=== PATIENT | female | born 1935 | race Caucasian/White ===

== ENCOUNTER 2018-01-30 15:35 | Observation (INO) | payer OTHER ==
[2018-01-30 16:30] LABS: Absolute Lymphocytes (CBC) 2.1 K/uL (0.7-4.9); Absolute Monocytes 0.9 K/uL (0.1-1.3); Absolute Neutrophil 4.9 K/uL (1.8-8.0); Basophils % 0.5 % (0-1.3); Eosinophils % 4.7 % (0-4.4); Hematocrit 37.5 % (36.0-45.0); Lymphocytes % 25.3 % (15.3-44.8); MCH 26.6 pg (27.0-35.0); MCV 80.3 fL (80-100); MPV 8.6 fL (7.6-11.3); RBC Red Blood Cell Count 4.67 M/uL (3.86-4.86)
[2018-01-30 16:34] LABS: Protime INR 1.13
[2018-01-30 16:53] LABS: Albumin 3.7 g/dL (3.4-5.0); Bilirubin Direct 0.1 mg/dL (0-0.2); Bilirubin Total 0.3 mg/dL (0.2-1.0); Potassium 3.9 mmol/L (3.5-5.1); Protein, Total 7.8 g/dL (6.4-8.2)
--- NOTE | 2018-01-30 17:15 | RAD REPORT ---
EXAM DESCRIPTION: RAD - Chest Single View - 01/30/2018 5:03 pm CLINICAL HISTORY: Shortness of breath, altered mental status COMPARISON: September 14 chest film, CT chest May 2017 TECHNIQUE: AP portable chest image was obtained 1627 hours . FINDINGS: Lung volumes are low. Chronic interstitial lung disease is present. Minimal interstitial e shamar or infiltrate could be masked. Lung markings overall improved from August. No peripheral mass or consolidation. Heart and vasculature are normal. No measurable pleural effusion and no pneumothora x. No acute bone finding. Dense calcification of the posterior left myocardium noted. This matches th e CT study. No acute aortic findings suspected. IMPRESSION: No acute cardiopulmonary process. Chronic disease could mask early interstitial edema or infiltrate.
[2018-01-30 17:37] LABS: Urine Blood NEGATIVE (NEG); Urine Glucose NEGATIVE (NEG); Urine Protein NEGATIVE (NEG); Urine Specific Gravity 1.015 (1.005-1.030); Urine pH 6.5 (5.0-7.0)
[2018-01-30 17:39] LABS: Urine Bacteria <20 /HPF (<20); Urine Culture Reflex Order NOT NEEDED
[2018-01-30] MEDS ORDERED: NA CHLORIDE 0.9% 1,000 ML ONE (18:01)
--- NOTE | 2018-01-30 18:03 | ER ---
Nurse's Notes [facility] Name: Kayla Marie Age: 82 yrs Sex: Female : 1935 Arrival Date: 01/30/2018 Time: 15:39 Bed 7 Private MD: Diagnosis: Dehydration;Altered mental status, unspecified;Chest pain, unspecified Presentation: 01/30 15:39 Presenting complaint: EMS states: Pt last seen normal at 0800 this morning per [facility] intermediate. Pt is arousable with verbal stimuli, c/o pain all over and generalized fatigue. Transition of care: patient was not received from another setting of care. Onset of symptoms was January 30, 2018. Risk Assessment: Do you want to hurt yourself or someone else? Patient reports no desire to harm self or others. Initial Sepsis Screen: Does the patient meet any 2 criteria? No. Patient's initial sepsis screen is negative. Does the patient have a suspected source of infection? No. Patient's initial sepsis screen is negative. Care prior to arrival: Glucose check: 237. 15:39 Method Of Arrival: EMS: [facility] 15:39 Acuity: REGINA 3 Historical: - Allergies: 15:47 eggplant; 15:47 Lorazepam; 15:47 Sulfa (Sulfonamide Antibiotics); - Home Meds: 19:03 spironolactone 25 mg Oral tab 1 tab 2 times per day [Active]; aspirin 81 mg Oral TbEC 1 aj1 tab once daily [Active]; Bentyl 20 mg Oral tab 1 tab 3 times per day [Active]; apixaban 5 mg Oral 1 tab Q EVENING [Active]; furosemide 40 mg oral tab [Active]; insulin detemir subcutaneous 18 units subcutaneous twice a day [Active]; Keppra 500 mg Oral tab 1 tab 2 times per day [Active]; magnesium oxide 400 mg Oral tab daily [Active]; metformin 500 mg oral tab 2 times per day [Active]; polyethylene glycol 8000(bulk) miscellaneous powd daily [Active]; - PMHx: 15:47 Anxiety; Aortic Stenosis; Atrial Fib; CAD; CHF; COPD; Dementia; Diabetes - IDDM; Hypertension; legally blind; Lupus; macular degeneration; Nerve stimulator; Osteoporosis; Seizures; right hip fx; - PSHx: 15:47 Unable to obtain; ss - Immunization history:: Adult Immunizations unknown. - Social history:: Smoking status: unknown. - Ebola Screening: : Patient denies travel to an Ebola-affected area in the 21 days before illness onset. Screenin:07 Abuse screen: Denies threats or abuse. Denies injuries from another. Nutritional aj1 screening: No deficits noted. Tuberculosis screening: No symptoms or risk factors identified. Assessment: 16:07 General: Appears in no apparent distress. uncomfortable, Behavior is cooperative, aj1 drowsy. Pain: Complains of pain in entire body Pain does not radiate. Pain currently is 10 out of 10 on a pain scale. Quality of pain is described as heavy, Is continuous, Alleviated by nothing. Aggravated by nothing. Neuro: Level of Consciousness is opens eyes only when told to do so and then will close her eyes again, even while talking to you. Pt responds in 3 to 5 word answers only. Oriented to person, place, time, situation, Rn Private Duty are weak bilaterally Weakness in bilateral arm(s) leg(s) states patient is wheelchair bound and is never able to move her legs very much. Speech slow, soft. Cardiovascular: Patient's skin is warm and dry. Respiratory: Airway is patent Respiratory effort is even, unlabored, Respiratory pattern is regular, symmetrical. GI: Abdomen is non-distended. : No signs and/or symptoms were reported regarding the genitourinary system. EENT: No signs and/or symptoms were reported regarding the EENT system. Derm: Skin is pink, warm \T\ dry. normal. Musculoskeletal: Circulation, motion, and sensation intact. 17:28 Reassessment: Patient appears in no apparent distress at this time. No changes from aj1 previously documented assessment. Patient and/or family updated on plan of care and expected duration. Pain level reassessed. Patient is alert, oriented x 3, equal unlabored respirations, skin warm/dry/pink. 18:30 Reassessment: Patient appears in no apparent distress at this time. Patient and/or aj1 family updated on plan of care and expected duration. Pain level reassessed. Patient is alert, oriented x 3, equal unlabored respirations, skin warm/dry/pink. Patient appears much more alert. Keeps eyes open, talking in more complete sentences. 19:30 Reassessment: Awaiting admission to floor. Reassessment: Patient appears in no apparent aa1 distress at this time. Patient and/or family updated on plan of care and expected duration. Pain level reassessed. Patient denies pain at this time. Neuro: Level of Consciousness is awake, alert, obeys commands, Oriented to person, place, situation, Speech is normal. Respiratory: Airway is patent Respiratory effort is even, unlabored. Derm: Skin is intact, is healthy with good turgor, Skin is pink, warm \T\ dry. 20:32 Reassessment: Patient appears in no apparent distress at this time. Patient and/or aa1 family updated on plan of care and expected duration. Pain level reassessed. Patient is alert, oriented x 3, equal unlabored respirations, skin warm/dry/pink. Attempted to call report on pt but nurse is unavailable and will call back shortly. Vital Signs: 15:47 BP 133 / 66; Pulse 64; Resp 17; Temp 99.1(O); Pulse Ox 98% on R/A; ss 17:28 BP 129 / 79; Pulse 63; Resp 18; Pulse Ox 99% on R/A; aj1 18:52 BP 133 / 65; Pulse 69; Resp 18; Pulse Ox 99% ; aj1 20:15 BP 106 / 62; Pulse 70; Resp 16; Temp 98.9(O); Pulse Ox 97% on R/A; Pain 0/10; aa1 Óscar Coma Score: 17:57 Eye Response: to voice(3). Verbal Response: oriented(5). Motor Response: obeys jr8 commands(6). Total: 14. ED Course: 15:39 Patient arrived in ED. ss 15:41 Godwin Gracia PA is PHCP. jr8 15:41 Chao Jansen MD is Attending Physician. jr8 15:44 Triage completed. ss 15:47 Arm band placed on right wrist. ss 15:48 Patient has correct armband on for positive identification. Placed in gown. Bed in low ss position. Call light in reach. Side rails up X2. otolaryngology surgeon on. Pulse ox on. NIBP on. 15:57 Madelyn Ruth RN is Primary Nurse. aj1 16:07 No provider procedures requiring assistance completed. aj1 16:16 Initial lab(s) drawn, by me, sent to lab. First set of blood cultures drawn by me. 3 Missed attempt(s): 22 gauge in left forearm. Bleeding controlled, band aid applied, catheter tip intact. 16:41 Inserted saline lock: 20 gauge in right antecubital area, using aseptic technique. Blood collected. 17:03 Chest Single View XRAY In Process Unspecified. EDMS 17:28 Urine collected: straight cath specimen, clear, Amount Returned: 1000mL. 3 18:01 Cristhian Mondragon MD is Hospitalizing Provider. [facility] 18:56 Repeat lab(s) drawn. by me, sent to lab. 3 20:48 Patient admitted, IV remains in place. lp1 Administered Medications: 18:05 Drug: NS 0.9% 1000 ml Route: IV; Rate: 1000 ml; Site: right antecubital; 1 20:00 Follow up: IV Status: Completed infusion aa1 Point of Care Testing: Blood Glucose: 16:18 Blood Glucose: 191 mg/dL; 3 Ranges: Outcome: 18:02 Decision to Hospitalize by Provider. [facility] 20:49 Admitted to Tele room 415, with chart, Report called to Kaye Matthew RN lp1 20:49 Condition: stable 20:49 Instructed on the need for admit. 21:32 Patient left the ED. aa1 Signatures: Dispatcher [employer] EDMadelyn Simon RN RN aj1 Narcisa Hutchinson RN RN aa1 Rosario Roque RN RN ss Evelyn Stewart RN RN lp1 Godwin Gracia PA PA 8 Ellen Ahmadi 3 Corrections: (The following items were deleted from the chart) 15:48 15:39 Care prior to arrival: None. ss ss
--- NOTE | 2018-01-30 18:03 | EDPHYS ---
Physician Documentation [facility] Name: Kayla Marie Age: 82 yrs Sex: Female : 1935 Arrival Date: 01/30/2018 Time: 15:39 Bed 7 Private MD: ED Physician Chao Jansen HPI: 01/30 17:48 This 82 yrs old Female presents to ER via EMS with complaints of Altered jr8 Mental Status. 17:48 Onset: The symptoms/episode began/occurred acutely, today. Possible causes: unknown. jr8 Associated signs and symptoms: The patient has no apparent associated signs or symptoms. Current symptoms: In the emergency department the patient's symptoms have improved, mildly. Patient's baseline: Neuro: alert and fully oriented, Motor: no deficits, Ambulation: unable to walk, Speech: normal. The patient has not experienced similar symptoms in the past. The patient has not recently seen a physician. stated that this morning she was fine but now very sleepy and not wanting to respond as well . Historical: - Allergies: 15:47 eggplant; ss 15:47 Lorazepam; ss 15:47 Sulfa (Sulfonamide Antibiotics); ss - Home Meds: 19:03 spironolactone 25 mg Oral tab 1 tab 2 times per day [Active]; aspirin 81 mg Oral TbEC 1 aj1 tab once daily [Active]; Bentyl 20 mg Oral tab 1 tab 3 times per day [Active]; apixaban 5 mg Oral 1 tab Q EVENING [Active]; furosemide 40 mg oral tab [Active]; insulin detemir subcutaneous 18 units subcutaneous twice a day [Active]; Keppra 500 mg Oral tab 1 tab 2 times per day [Active]; magnesium oxide 400 mg Oral tab daily [Active]; metformin 500 mg oral tab 2 times per day [Active]; polyethylene glycol 8000(bulk) miscellaneous powd daily [Active]; - PMHx: 15:47 Anxiety; Aortic Stenosis; Atrial Fib; CAD; CHF; COPD; Dementia; Diabetes - IDDM; ss Hypertension; legally blind; Lupus; macular degeneration; Nerve stimulator; Osteoporosis; Seizures; right hip fx; - PSHx: 15:47 Unable to obtain; ss - Immunization history:: Adult Immunizations unknown. - Social history:: Smoking status: unknown. - Ebola Screening: : Patient denies travel to an Ebola-affected area in the 21 days before illness onset. ROS: 17:57 Eyes: Negative for injury, pain, redness, and discharge, ENT: Negative for injury, jr8 pain, and discharge, Neck: Negative for injury, pain, and swelling, Cardiovascular: Negative for chest pain, palpitations, and edema, Respiratory: Negative for shortness of breath, cough, wheezing, and pleuritic chest pain, Abdomen/GI: Negative for abdominal pain, nausea, vomiting, diarrhea, and constipation, Back: Negative for injury and pain, MS/Extremity: Negative for injury and deformity, Skin: Negative for injury, rash, and discoloration, Neuro: Negative for headache, weakness, numbness, tingling, and seizure. 17:57 Constitutional: Positive for fatigue, malaise. Exam: 17:57 Eyes: Pupils equal round and reactive to light, extra-ocular motions intact. Lids and jr8 lashes normal. Conjunctiva and sclera are non-icteric and not injected. Cornea within normal limits. Periorbital areas with no swelling, redness, or edema. ENT: Nares patent. No nasal discharge, no septal abnormalities noted. Tympanic membranes are normal and external auditory canals are clear. Oropharynx with no redness, swelling, or masses, exudates, or evidence of obstruction, uvula midline. Mucous membranes moist. Neck: Trachea midline, no thyromegaly or masses palpated, and no cervical lymphadenopathy. Supple, full range of motion without nuchal rigidity, or vertebral point tenderness. No Meningismus. Cardiovascular: Regular rate and rhythm with a normal S1 and S2. No gallops, murmurs, or rubs. Normal PMI, no JVD. No pulse deficits. Respiratory: Lungs have equal breath sounds bilaterally, clear to auscultation and percussion. No rales, rhonchi or wheezes noted. No increased work of breathing, no retractions or nasal flaring. Abdomen/GI: Soft, non-tender, with normal bowel sounds. No distension or tympany. No guarding or rebound. No evidence of tenderness throughout. Back: No spinal tenderness. No costovertebral tenderness. Full range of motion. Skin: Warm, dry with normal turgor. Normal color with no rashes, no lesions, and no evidence of cellulitis. MS/ Extremity: Pulses equal, no cyanosis. Neurovascular intact. Full, normal range of motion. Neuro: Awake and alert, oriented to person, place, time, and situation. Cranial nerves II-XII grossly intact. Motor strength 5/5 in all extremities. Sensory grossly intact. Cerebellar exam normal. Normal gait. Vital Signs: 15:47 BP 133 / 66; Pulse 64; Resp 17; Temp 99.1(O); Pulse Ox 98% on R/A; ss 17:28 BP 129 / 79; Pulse 63; Resp 18; Pulse Ox 99% on R/A; aj1 18:52 BP 133 / 65; Pulse 69; Resp 18; Pulse Ox 99% ; aj1 20:15 BP 106 / 62; Pulse 70; Resp 16; Temp 98.9(O); Pulse Ox 97% on R/A; Pain 0/10; aa1 Óscar Coma Score: 17:57 Eye Response: to voice(3). Verbal Response: oriented(5). Motor Response: obeys jr8 commands(6). Total: 14. MDM: 15:41 Patient medically screened. jr8 17:59 Data reviewed: vital signs, nurses notes, lab test result(s), EKG, radiologic studies, jr8 plain films. Data interpreted: Pulse oximetry: on room air is 99 %. Interpretation: normal. Counseling: I had a detailed discussion with the patient and/or guardian regarding: the historical points, exam findings, and any diagnostic results supporting the discharge/admit diagnosis, lab results, the need for further work-up and treatment in the hospital. Physician consultation: Cristhian Mondragon MD was called at 18:01, was contacted at 18:01, regarding admission, to the medical/surgical unit. consult, patient's condition, and will see patient. 01/30 15:45 Order name: Urine Microscopic Only; Complete Time: 17:40 rust 01/30 15:45 Order name: Basic Metabolic Panel; Complete Time: 17:08 rust 01/30 15:45 Order name: Blood Culture Adult (2) rust 01/30 15:45 Order name: CBC with Diff; Complete Time: 16:41 rust 01/30 15:45 Order name: Lactate; Complete Time: 17:34 rust 01/30 15:45 Order name: LFT's; Complete Time: 17:08 01/30 15:45 Order name: Lipase; Complete Time: 17:08 01/30 15:45 Order name: Procalcitonin; Complete Time: 17:34 01/30 15:45 Order name: Protime (+inr); Complete Time: 16:41 01/30 15:45 Order name: Troponin (emerg Dept Use Only); Complete Time: 17:08 01/30 15:45 Order name: Chest Single View XRAY; Complete Time: 17:34 01/30 17:34 Order name: Urine Dipstick--Ancillary (enter results); Complete Time: 17:38 ss 01/30 18:38 Order name: Lactate aj1 01/30 19:17 Order name: Lactate; Complete Time: 19:56 EDMS 01/30 15:45 Order name: Cath; Complete Time: 17:27 01/30 15:45 Order name: Accucheck; Complete Time: 16:50 01/30 15:45 Order name: Cardiac monitoring; Complete Time: 16:12 01/30 15:45 Order name: EKG - Nurse/Tech; Complete Time: 17:27 01/30 15:45 Order name: IV Saline Lock - Large Bore; Complete Time: 16:41 01/30 15:45 Order name: Labs collected and sent; Complete Time: 16:41 01/30 15:45 Order name: O2 Per Protocol; Complete Time: 16:12 01/30 15:45 Order name: O2 Sat Monitoring; Complete Time: 16:12 01/30 15:45 Order name: Urine Dipstick-Ancillary (obtain specimen); Complete Time: 17:28 Administered Medications: 18:05 Drug: NS 0.9% 1000 ml Route: IV; Rate: 1000 ml; Site: right antecubital; aj1 20:00 Follow up: IV Status: Completed infusion aa1 Point of Care Testing: Blood Glucose: 16:18 Blood Glucose: 191 mg/dL; dh3 Ranges: Critical Glucose Levels:Adult <50 mg/dl or >400 mg/dl <40 mg/dl or >180 mg/dl Disposition: 01/31 06:50 Co-signature as Attending Physician, Chao Jansen MD I agree with the assessment and yisel plan of care. Disposition: 01/30/18 18:02 Hospitalization ordered by Cristhian Mondragon for Observation. Preliminary diagnosis are Dehydration, Altered mental status, unspecified, Chest pain, unspecified. - Bed requested for Telemetry/MedSurg (observation). - Status is Observation. aa1 - Condition is Stable. - Problem is new. - Symptoms have improved. UTI on Admission? No Signatures: Dispatcher [employer] EDMS Madelyn Ruth RN RN aj1 Aleshia Brothers RN RN kl Kern, Alissa, RN RN aa1 Chao Jansen MD MD cha Smirch, Shelby, RN RN ss Roszak, Josh, PA PA jr8 Corrections: (The following items were deleted from the chart) 01/30 18:04 18:02 Hospitalization Ordered by Cristhian Mondragon MD for Observation. Preliminary jr8 diagnosis is Dehydration; Altered mental status, unspecified. Bed requested for Telemetry/MedSurg (observation). Status is Observation. Condition is Stable. Problem is new. Symptoms have improved. UTI on Admission? No. jr8 19:28 18:04 01/30/2018 18:02 Hospitalization Ordered by Cristhian Mondragon MD for Observation. kl Preliminary diagnosis is Dehydration; Altered mental status, unspecified; Chest pain, unspecified. Bed requested for Telemetry/MedSurg (observation). Status is Observation. Condition is Stable. Problem is new. Symptoms have improved. UTI on Admission? No. jr8 21:32 19:28 01/30/2018 18:02 Hospitalization Ordered by Cristhian Mondragon MD for Observation. aa1 Preliminary diagnosis is Dehydration; Altered mental status, unspecified; Chest pain, unspecified. Bed requested for Telemetry/MedSurg (observation). Status is Observation. Condition is Stable. Problem is new. Symptoms have improved. UTI on Admission? No. kl
--- NOTE | 2018-01-30 21:10 | P.HP ---
Certification for Inpatient Patient admitted to: Observation With expected LOS: <2 Midnights Practitioner: I am a practitioner with admitting privileges, knowledge of patient current condition, hospital course, and medical plan of care. Services: Services provided to patient in accordance with Admission requirements found in Title 42 Section 412.3 of the Code of Federal Regulations Patient History Date of Service: 01/30/18 Reason for admission: acute encephalopathy History of Present Illness: Ms Marie is an 82 years old woman with multiple medical problems including CAD with 3 vessel disease, critical aortic stenosis, who refused surgery in the past, IDDM, COPD, who was seen well for last time this [facility]. Subsequently, the patient become lethargic and obtunded. No history of fever, chills, cough, SOB, N/V. She was arousable with verbal stimuli. In ED lab work remarkable for normal WBC count, lactate elevated, BUN elevated, creatinine normal. Procalcitonin normal. UA clean, but the patient had about 1 L of urine removed from her bladder with a straight catheter when UA was obtained. At the time of my examination, the patient was alert and oriented. Allergies Sulfa (Sulfonamide Antibiotics) Allergy (Unknown, Verified 06/07/17 05:24) UNKNOWN lorazepam Adverse Reaction (Verified 06/07/17 15:22) UNknown egg plant Allergy (Severe, Uncoded 06/07/17 05:24) Anaphylaxis vinegar Adverse Reaction (Unknown, Uncoded 06/07/17 05:24) Rash Home Medications: Apixaban [Eliquis] 1 tab PO BEDTIME 04/23/17 Aspirin [Aspir-Low] 1 tab PO DAILY 04/23/17 Hydrocodone Bit/Acetaminophen [[place] 10-325 Tablet] 1 tab PO Q6HP PRN 04/23/17 Levetiracetam [Keppra] 500 mg PO BID 04/23/17 Metformin HCl 1 tab PO BID 04/23/17 Sotalol HCl [Sotalol] 1 tab PO BID 04/23/17 Spironolactone [Aldactone*] 1 tab PO BID 04/23/17 Acetaminophen [Tylenol Arthritis] 650 mg PO Q4H 06/07/17 Benzonatate 200 mg PO Q8HP 06/07/17 Insulin Detemir [Levemir] 18 unit SQ BID 06/07/17 Levalbuterol HCl [Xopenex] 1 puff IH Q8HP PRN 06/07/17 Magnesium [Magnesium Gluconate] 400 mg PO DAILY 06/07/17 Mag Hydroxide 8% [Milk Of Magnesia*] 30 ml PO Q24H PRN 09/14/17 Ondansetron HCl [Zofran] 1 tab PO Q6H PRN 09/14/17 Tiotropium [place] [Spiriva] 1 puff IH DAILY 09/14/17 Furosemide [Lasix] 40 mg PO BID #60 tablet 09/16/17 - Past Medical/Surgical History Diabetic: Yes -: Lupus -: Afib -: Arthritis -: Macular degeneration -: IDDM -: CHF -: Nerve stimulator -: COPD -: Dementia -: HTN -: Seizures -: Anxiety -: Appy -: Ovarian cysts -: hernia repair -: hysterectomy -: nose sx -: cholesysectomy -: lysis of adhesions to bowel -: R hip fracture - Family History Mother -: Heart disease, Diabetes Notes: CHF Father -: Heart disease Notes: CHF Brother -: Heart disease, Cancer Notes: CHF. Prostated cancer - Social History Alcohol use: No CD- Drugs: No Caffeine use: Yes Place of Residence: [facility] Review of Systems 10-point ROS is otherwise unremarkable Physical Examination - Physical Exam General: Alert, In no apparent distress HEENT: Atraumatic, PERRLA, Mucous membr. moist/pink, EOMI, Sclerae nonicteric Neck: Supple, 2+ carotid pulse no bruit, No LAD, Without JVD or thyroid abnormality Respiratory: Clear to auscultation bilaterally, Normal air movement Cardiovascular: Normal S1 S2, No gallops, Systolic murmur (3/6 aortic area) Gastrointestinal: Normal bowel sounds, No tenderness Musculoskeletal: No tenderness, Swelling Integumentary: No rashes Neurological: Normal speech, Normal strength at 5/5 x4 extr, Normal tone, Normal affect Lymphatics: No axilla or inguinal lymphadenopathy - Studies Laboratory Data (last 24 hrs) 01/30/18 16:16: PT 13.3 H, INR 1.13 01/30/18 16:16: WBC 8.3, Hgb 12.4, Hct 37.5, Plt Count 250 01/30/18 16:16: Sodium 135 L, Potassium 3.9, BUN 24 H, Creatinine 0.80, Glucose 202 H, Total Bilirubin 0.3, AST 26, ALT 22, Alkaline Phosphatase 147 H, Lipase 44 L Assessment and Plan - Problems (Diagnosis) (1) Acute encephalopathy Current Visit: Yes Status: Acute (2) CAD (coronary artery disease) Current Visit: Yes Status: Acute Qualifiers: Coronary Disease-Associated Artery/Lesion type: tribe artery [place] vs. transplanted heart: tribe heart Associated angina: with stable angina Qualified Code(s): I25.118 - Atherosclerotic heart disease of tribe coronary artery with other forms of angina pectoris (3) Aortic stenosis Current Visit: No Status: Chronic Qualifiers: Cardiac valve disease etiology: etiology unspecified Qualified Code(s): I35.0 - Nonrheumatic aortic (valve) stenosis (4) Atrial fibrillation Onset Date: 06/08/17 Current Visit: No Status: Chronic Qualifiers: Atrial fibrillation type: chronic - Plan The patient will be admitted to the hospital due to acute encephalopathy, likely secondary to volume depletions. She already improved after NS infusion. Will continue carol IV fluids due to her chronic comorbidities. [facility] if remain stable. - Advance Directives Does patient have a Living Will: No Does patient have a Durable POA for Healthcare: Yes - Code Status/Comfort Care Code Status Assessed: Yes Code Status: Do Not Resuscitate
[2018-01-30] MEDS ORDERED: ONDANSETRON 4 MG/2 ML VIAL IV PRN (21:29)
[2018-01-30] MEDS ORDERED: ACETAMINOPHEN 500 MG TAB PO PRN (21:29)
[2018-01-30] MEDS: INSULIN -REGULAR HUMAN 50 UNIT/0.5 ML ML SQ SCH (21:29)
[2018-01-30 21:41] VITALS: BMI 28.5
[2018-01-30 21:46] VITALS: O2SAT 97
[2018-01-30] MEDS: NA CHLORIDE 0.9% 1,000 ML IV SCH (22:43)
[2018-01-31 06:23] LABS: Absolute Lymphocytes (CBC) 1.9 K/uL (0.7-4.9); Absolute Monocytes 0.9 K/uL (0.1-1.3); Absolute Neutrophil 4.7 K/uL (1.8-8.0); Basophils % 0.5 % (0-1.3); Eosinophils % 3.8 % (0-4.4); Hematocrit 34.2 % (36.0-45.0); Lymphocytes % 23.9 % (15.3-44.8); MCH 27.3 pg (27.0-35.0); MPV 8.8 fL (7.6-11.3); Monocytes % 11.4 % (3.3-12.3); RBC Red Blood Cell Count 4.27 M/uL (3.86-4.86)
[2018-01-31 06:33] LABS: BUN Blood Urea Nitrogen 17 mg/dL (7-18); Bicarbonate 26 mmol/L (21-32); Glucose Level 153 mg/dL (74-106); Potassium 3.8 mmol/L (3.5-5.1); Sodium Level 142 mmol/L (136-145)
[2018-01-31] MEDS: INSULIN -REGULAR HUMAN 50 UNIT/0.5 ML ML SQ SCH ×2 (07:30→11:56)
[2018-01-31] MEDS ORDERED: KCL 20 MEQ/100 mL IVPB 20 MEQ/100 ML BAG IV SCH (08:00)
[2018-01-31] MEDS ORDERED: POTASSIUM 25 MEQ EFFERV TAB PO ONE (08:00)
[2018-01-31 08:25] VITALS: BP 123/67; TEMP 97
[2018-01-31] MEDS ORDERED: ENOXAPARIN 40 MG/0.4 ML SQ SCH (09:00)
[2018-01-31] MEDS: NA CHLORIDE 0.9% 1,000 ML IV SCH (09:18)
--- NOTE | 2018-01-31 09:30 | EKG ---
Test Date: 2018-01-30 Test Time: 16:59:22 Gunstock Repairer: TOM MEASUREMENT RESULTS: Intervals: Rate: 61 TX: 200 QRSD: 70 QT: 458 QTc: 461 [place]: P: 11 TX: 200 QRS: 3 T: 46 INTERPRETIVE STATEMENTS: Normal sinus rhythm Junctional ST depression, probably normal Borderline ECG Compared to ECG 09/14/2017 04:28:19 ST (T wave) deviation now present Sinus bradycardia no longer present Electronically Signed On 01-31-18 09:28:00 CDT by Andrade Kincaid
--- NOTE | 2018-01-31 12:42 | P.SSS ---
Patient History Date of Service: 01/31/18 Primary Care Provider: [facility] Reason for admission: acute encephalopathy History of Present Illness: Ms Marie is an 82 years old woman with multiple medical problems including CAD with 3 vessel disease, critical aortic stenosis, who refused surgery in the past, IDDM, COPD, who was seen well for last time this morning in breakfast at the shelter where she is resident. Subsequently, the patient become lethargic and obtunded. No history of fever, chills, cough, SOB, N/V. She was arousable with verbal stimuli. In ED lab work remarkable for normal WBC count, lactate elevated, BUN elevated, creatinine normal. Procalcitonin normal. UA clean, but the patient had about 1 L of urine removed from her bladder with a straight catheter when UA was obtained. At the time of my examination, the patient was alert and oriented. Allergies Sulfa (Sulfonamide Antibiotics) Allergy (Unknown, Verified 06/07/17 05:24) UNKNOWN lorazepam Adverse Reaction (Verified 06/07/17 15:22) UNknown egg plant Allergy (Severe, Uncoded 06/07/17 05:24) Anaphylaxis eggplant Allergy (Uncoded 01/30/18 21:36) Unknown vinagar Allergy (Uncoded 01/30/18 21:36) Unknown vinegar Adverse Reaction (Unknown, Uncoded 06/07/17 05:24) Rash Home Medications: Apixaban [Eliquis] 1 tab PO BEDTIME 04/23/17 Aspirin [Aspir-Low] 1 tab PO DAILY 04/23/17 Levetiracetam [Keppra] 500 mg PO BID 04/23/17 Metformin HCl 1 tab PO BID 04/23/17 Spironolactone [Aldactone*] 1 tab PO BID 04/23/17 Insulin Detemir [Levemir] 18 unit SQ BID 06/07/17 Magnesium [Magnesium Gluconate] 400 mg PO DAILY 06/07/17 Mag Hydroxide 8% [Milk Of Magnesia*] 30 ml PO Q24H PRN 09/14/17 Furosemide [Lasix] 40 mg PO BID #60 tablet 09/16/17 Dicyclomine [Bentyl*] 20 mg PO Q8HR 01/31/18 Polyethyl Gly 3350 [Glycolax*] 17 gm PO ONCE PRN 01/31/18 - Past Medical/Surgical History Has patient received pneumonia vaccine in the past: Yes Diabetic: Yes -: Lupus -: Afib -: Arthritis -: Macular degeneration -: IDDM -: CHF -: Nerve stimulator -: COPD -: Dementia -: HTN -: Seizures -: Anxiety -: Appy -: Ovarian cysts -: hernia repair -: hysterectomy -: nose sx -: cholesysectomy -: lysis of adhesions to bowel -: R hip fracture - Family History Mother -: Heart disease, Diabetes Notes: CHF Father -: Heart disease Notes: CHF Brother -: Heart disease, Cancer Notes: CHF. Prostated cancer - Social History Smoking Status: Never smoker Alcohol use: No CD- Drugs: No Caffeine use: No Place of Residence: Retirement Review of Systems General: As per HPI Physical Examination - Vital Signs Temperature: 97.0 F Blood Pressure: 123/67 Pulse: 63 Respirations: 18 Pulse Ox (%): 97 - Physical Exam General: Alert, In no apparent distress HEENT: Atraumatic, PERRLA, Mucous membr. moist/pink, EOMI, Sclerae nonicteric Neck: Supple, 2+ carotid pulse no bruit, No LAD, Without JVD or thyroid abnormality Respiratory: Clear to auscultation bilaterally, Normal air movement Cardiovascular: Regular rate/rhythm, Normal S1 S2 Gastrointestinal: Normal bowel sounds, No tenderness Musculoskeletal: No tenderness Integumentary: No rashes Neurological: Normal gait, Normal speech, Normal strength at 5/5 x4 extr, Normal tone, Normal affect Lymphatics: No axilla or inguinal lymphadenopathy - Studies Laboratory Data (last 24 hrs) 01/30/18 16:16: PT 13.3 H, INR 1.13 01/30/18 16:16: WBC 8.3, Hgb 12.4, Hct 37.5, Plt Count 250 01/30/18 16:16: Sodium 135 L, Potassium 3.9, BUN 24 H, Creatinine 0.80, Glucose 202 H, Total Bilirubin 0.3, AST 26, ALT 22, Alkaline Phosphatase 147 H, Lipase 44 L Microbiology Data (last 24 hrs): 01/30/18 16:16 Blood - Blood Anaerobic Blood Culture - Final - Diagnosis (Problem(s)) (1) Acute encephalopathy Status: Resolved (2) CAD (coronary artery disease) Status: Chronic Qualifiers: Coronary Disease-Associated Artery/Lesion type: [place] artery [place] vs. transplanted heart: [place] heart Associated angina: with stable angina Qualified Code(s): I25.118 - Atherosclerotic heart disease of [place] coronary artery with other forms of angina pectoris (3) Atrial fibrillation Onset Date: 06/08/17 Status: Chronic Qualifiers: Atrial fibrillation type: chronic (4) B12 deficiency Status: Chronic (5) CHF (congestive heart failure) Onset Date: 04/24/17 Status: Chronic Qualifiers: Qualified Code(s): I50.32 - Chronic diastolic (congestive) heart failure (6) Diabetes mellitus Onset Date: 06/08/17 Status: Chronic Qualifiers: Diabetes mellitus type: type 2 Diabetes mellitus retirement insulin use: without retirement use Diabetes mellitus complication status: without complication Qualified Code(s): E11.9 - Type 2 diabetes mellitus without complications (7) Hyperlipidemia Onset Date: 02/18/17 Status: Chronic Qualifiers: Hyperlipidemia type: mixed hyperlipidemia Qualified Code(s): E78.2 - Mixed hyperlipidemia Treatment Summary: During the hospital stay patient remained stable The patient was initially admitted to the hospital for altered mental status most likely secondary to dehydration. Patient was given fluids here in the hospital and recovered well. Patient then was discharged back to the shelter under stable condition. - Disposition Disposition: TRANSFER TO SKILLED NURSING Condition: GOOD Patient Discharge Instructions: Please F.u PCP at the [facility] once discharged. -You were admitted to the hospital for Dehydration and have been given fluids. Recovered well. You are to continue with oral Fluids. Diet: Regular Activity: Ad zeus
== END 2018-01-31 12:28 ==
LOC: ER 15:35 → ERHOLD 18:03 → 4TH 20:54
PROVIDERS: ADMIT Internal Medicine; ATTEND Internal Medicine
DX: G93.40 Encephalopathy, unspecified (principal); I25.10 Atherosclerotic heart disease of native coronary artery without angina pectoris; I48.2 Chronic atrial fibrillation; E53.8 Deficiency of other specified B group vitamins; I11.0 Hypertensive heart disease with heart failure; I50.32 Chronic diastolic (congestive) heart failure; M32.9 Systemic lupus erythematosus, unspecified; E11.9 Type 2 diabetes mellitus without complications; E78.5 Hyperlipidemia, unspecified; J44.9 Chronic obstructive pulmonary disease, unspecified; Z79.82 Long term (current) use of aspirin; Z88.2 Allergy status to sulfonamides
CPT/HCPCS: 36415; 71045; 80048 ×2; 80076; 82962 ×4; 83605 ×2; 83690; 84145; 84484; 85025 ×2; 85610; 87040 ×2; 93005; 96360; 96361; 99285; G0378 ×2; J1650; J7030 ×3; 81003; 81015

== ENCOUNTER 2019-11-23 12:08 | Emergency (ER) | payer OTHER ==
--- OUTSIDE RECORDS SUMMARY | 2019-11-23 12:10 | XMS REPORT ---
:1935 Author Organization [facility] t Address [address] [place] [address] Dr. Baldwin [address] [place] [id number] Care Team Providers Name Role Phone Unavailable Unavailable Unavailable Problems This patient has no known problems. Allergies, Adverse Reactions, Alerts This patient has no known allergies or adverse reactions. Medications This patient has no known medications.
[2019-11-23 13:46] LABS: Absolute Lymphocytes (CBC) 1.3 K/uL (0.7-4.9); Basophils % 0.5 % (0-1.3); Hematocrit 40.4 % (36.0-45.0); Lymphocytes % 12.8 % (15.3-44.8); MPV 8.7 fL (7.6-11.3); RBC Red Blood Cell Count 4.54 M/uL (3.86-4.86)
[2019-11-23 13:57] LABS: Potassium 3.7 mmol/L (3.5-5.1)
[2019-11-23 14:16] LABS: ALT/SGPT 66 U/L (12-78); AST/SGOT 38 U/L (15-37); Albumin 3.5 g/dL (3.4-5.0); Alkaline Phosphatase 93 U/L (45-117); Bilirubin Direct 0.1 mg/dL (0-0.2); Bilirubin Total 0.5 mg/dL (0.2-1.0); Protein, Total 7.4 g/dL (6.4-8.2)
[2019-11-23 16:35] LABS: Barbiturates NEGATIVE (NEGATIVE); Benzodiazepines NEGATIVE (NEGATIVE); Cocaine NEGATIVE (NEGATIVE); METHAMPHETAM NEGATIVE (NEGATIVE); Methadone NEGATIVE (NEGATIVE); Opiates NEGATIVE (NEGATIVE); Phencyclidine NEGATIVE (NEGATIVE); THC Cannibis NEGATIVE (NEGATIVE)
--- NOTE | 2019-11-23 17:41 | EDPHYS ---
Physician Documentation [facility] Name: Kayla Marie Age: 84 yrs Sex: Female : 1935 Arrival Date: 11/23/2019 Time: 12:16 Bed 3 Private MD: ED Physician Jelani Montoya HPI: 11/22 17:41 This 84 yrs old Female presents to ER via EMS with complaints of Altered kdr Mental Status. 17:41 The patient presents with agitation, confusion. Onset: The symptoms/episode kdr began/occurred at an unknown time. The patient was to be transferred to [facility] in [place]. The shelter called [facility] to transport the patient but they reportedly informed the shelter that they could not transport to that location but could transport to the hospital which apparently the shelter authorized. The patient is now here in the ED without any known reason for an ED visit.. Historical: - Allergies: 12:23 eggplant; hb 12:23 Lorazepam; hb 12:23 Sulfa (Sulfonamide Antibiotics); hb - PMHx: 12:23 Anxiety; Aortic Stenosis; Atrial Fib; CAD; CHF; COPD; Dementia; Diabetes - IDDM; hb Hypertension; legally blind; Lupus; Nerve stimulator; macular degeneration; Osteoporosis; right hip fx; Seizures; - PSHx: 12:23 Unable to obtain; hb - Immunization history:: Adult Immunizations unknown. - Social history:: Smoking status: unknown. ROS: 17:41 Constitutional: The pataient is confused and not able to give a reliable history kdr 17:41 Unable to obtain ROS due to altered mental status, baseline dementia. Exam: 17:41 Constitutional: This is a well developed, well nourished patient who is awake, alert, kdr and in very mild distress. Head/Face: Normocephalic, atraumatic. Eyes: Pupils equal round and reactive to light, extra-ocular motions intact. Lids and lashes normal. Conjunctiva and sclera are non-icteric and not injected. Cornea within normal limits. Periorbital areas with no swelling, redness, or edema. Neck: Trachea midline, no thyromegaly or masses palpated, and no cervical lymphadenopathy. Supple, full range of motion without nuchal rigidity, or vertebral point tenderness. No Meningismus. Chest/axilla: Normal chest wall appearance and motion. Nontender with no deformity. No lesions are appreciated. Cardiovascular: Regular rate and rhythm with a normal S1 and S2. No gallops, murmurs, or rubs. Normal PMI, no JVD. No pulse deficits. Respiratory: Lungs have equal breath sounds bilaterally, clear to auscultation and percussion. No rales, rhonchi or wheezes noted. No increased work of breathing, no retractions or nasal flaring. Abdomen/GI: Soft, non-tender, with normal bowel sounds. No distension or tympany. No guarding or rebound. No evidence of tenderness throughout. Back: No spinal tenderness. No costovertebral tenderness. Full range of motion. Skin: Warm, dry with normal turgor. Normal color with no rashes, no lesions, and no evidence of cellulitis. MS/ Extremity: Pulses equal, no cyanosis. Neurovascular intact. Full, normal range of motion. 17:41 Neuro: Orientation: to place, Mentation: able to follow commands, confused, sleepy, Motor: moves all fours. Vital Signs: 12:16 BP 91 / 40; Pulse 90; Resp 16; Temp 97.8; Pulse Ox 99% on R/A; hb 13:30 BP 112 / 68; Pulse 70; Resp 15; Pulse Ox 99% on R/A; hb 14:30 BP 101 / 67; Pulse 82; Resp 17; Pulse Ox 96% on R/A; hb 15:30 BP 107 / 64; Pulse 80; Resp 15; Pulse Ox 98% on R/A; hb 16:30 BP 102 / 69; Pulse 84; Resp 15; Pulse Ox 96% on R/A; hb MDM: 17:41 Patient medically screened. kdr 17:41 Data reviewed: vital signs, nurses notes, lab test result(s), radiologic studies. kdr Counseling: I had a detailed discussion with the patient and/or guardian regarding: the historical points, exam findings, and any diagnostic results supporting the discharge/admit diagnosis, lab results, radiology results, the need to transfer to another facility. 11/22 12:18 Order name: CBC with Diff; Complete Time: 14:16 kdr 11/22 12:18 Order name: Basic Metabolic Panel; Complete Time: 14:16 kdr 11/22 12:38 Order name: Acetaminophen; Complete Time: 15:10 kdr 11/22 12:38 Order name: ETOH Level; Complete Time: 14:16 kdr 11/22 12:38 Order name: Hepatic Function; Complete Time: 15:10 [facility] 11/22 12:38 Order name: Salicylate; Complete Time: 15:10 [facility] 11/22 12:18 Order name: Urine Dipstick-Ancillary (obtain specimen): Cath UA; Complete Time: 16:02 [facility] 11/22 12:38 Order name: Urine Drug Screen; Complete Time: 17:37 [facility] 11/22 12:38 Order name: EKG - Nurse/Tech; Complete Time: 16:02 [facility] 11/22 12:38 Order name: IV Saline Lock; Complete Time: 13:36 kdr 11/22 12:38 Order name: Labs collected and sent; Complete Time: 13:36 kdr Administered Medications: No medications were administered Disposition: 11/23/19 17:41 Transfer ordered to Psych Facility. Diagnosis are Altered mental status, unspecified, Confusion, Combative. - Reason for transfer: Higher level of care. - Accepting physician is Omaira. - Condition is Stable. - Problem is new. - Symptoms have improved. Signatures: Dispatcher [employer] EDMS Jelani Montoya MD MD kdr Era Negron, MAMIE RN iw Patti Zimmerman RN RN July Montoya RN RN Corrections: (The following items were deleted from the chart) 17:43 17:41 11/23/2019 17:41 Transfer ordered to Psych Facility. Diagnosis is Altered mental iw status, unspecified; Confusion, Combative. Reason for transfer: Higher level of care. Accepting physician is Omaira. Condition is Stable. Problem is new. Symptoms have improved. kdr
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
--- NOTE | 2019-11-24 13:01 | EKG ---
Test Date: 2019-11-23 Test Time: 16:02:55 Licensed Massage Therapist: HOWARD MEASUREMENT RESULTS: Intervals: Rate: 78 NH: QRSD: 64 QT: 424 QTc: 483 Golf: P: NH: QRS: 47 T: 71 INTERPRETIVE STATEMENTS: Undetermined rhythm Otherwise normal ECG Compared to ECG 01/30/2018 16:59:22 Sinus rhythm no longer present ST (T wave) deviation no longer present Electronically Signed On 11-24-19 12:58:30 CDT by Andrade Kincaid
[2019-11-24 16:33] VITALS: TEMP 97.8
[2019-11-24 16:38] VITALS: BP 102/69; O2SAT 96
== END 2019-11-23 17:43 ==
LOC: ER 12:08
DX: R41.0 Disorientation, unspecified (principal); R45.6 Violent behavior; F03.90 Unspecified dementia, unspecified severity, without behavioral disturbance, psychotic disturbance, mood disturbance, and anxiety; I10 Essential (primary) hypertension; Z88.2 Allergy status to sulfonamides; Z88.8 Allergy status to other drugs, medicaments and biological substances; Z91.018 Allergy to other foods
CPT/HCPCS: 36415; 80048; 80076; 80307; 80320; 80329; 85025; 93005; 99285

== ENCOUNTER 2020-03-15 19:13 | Inpatient (IN) | payer OTHER ==
--- OUTSIDE RECORDS SUMMARY | 2020-03-15 19:15 | XMS REPORT | Continuity of Care Document ---
:1935 Author Organization [facility] t Address [address] [place] [address] [address]. [address] [place] [address] Care Team Providers Name Role Phone Unavailable Unavailable Unavailable Payers Payer Name Policy Type Policy Number Effective Date Expiration Date S ource Problems This patient has no known problems. Allergies, Adverse Reactions, Alerts Allergy Allergy Status Severity Reaction(s) Onset Inactive Treating Comm ents Source Name Type Date Date Clinician lorazepa DA Active [place] 2016- [facility] m 9-10 [facility] 00:[facility]: e [facility] .VINEGAR DA Active U [facility] 3-07 [facility] 00:00: e 00 [facility] Center EGGPLANT DA Active U [facility] 3- [facility] 00:00: e 00 Medical Center SULFA DA Active U [facility] DRUGS -07 [facility] 00:00: e 00 [facility] Medications This patient has no known medications. Procedures This patient has no known procedures. Results Test Description Test Time Test Comments Results Result Comments Source BASIC METABOLIC PANEL 2019-12-05 03:37:00 Test Item Value Reference Range Interpretation Comme nts SODIUM (test code = NA) 136 mmol/L 136-145 N POTASSIUM (test code = K) 4.0 mmol/L 3.5-5.1 N CHLORIDE (test code = CL) 99.0 mmol/L 98-107 N CARBON DIOXIDE (test code = 29.0 mmol/L 21-32 N CO2) ANION GAP (test code = GAP) 12.0 10-20 N GLUCOSE (test code = GLU) 139 mg/dL 74-106 H BLOOD UREA NITROGEN (test code 22 mg/dL 7-18 H = BUN) GLOMERULAR FILTRATION RATE 60 mL/min >=60 E stimated GFR by using (test code = GFR) Modified M DRD formula.Chronic kidney disease is defined as either kidney d amageor GFR <60 mL/min/1.73 m2 for >3 months. CREATININE (test code = CREAT) 0.90 mg/dL 0.55-1.02 N Note change in reference range due to ch sharda in reagent. BUN/CREATININE RATIO (test code 24.4 10-20 H = BUN/CREA) CALCIUM (test code = CA) 8.6 mg/dL 8.5-10.1 N BASIC METABOLIC [id number] 03:29:00 Test Item Value Reference Range Interpretation Comments SODIUM (test code = NA) 136 mmol/L 136-145 N POTASSIUM (test code = K) 4.0 mmol/L 3.5-5.1 N CHLORIDE (test code = CL) 99.0 mmol/L 98-107 N CARBON DIOXIDE (test code = CO2) mmol/L 21-32 ANION GAP (test code = GAP) 10-20 GLUCOSE (test code = GLU) mg/dL 74-106 BLOOD UREA NITROGEN (test code = mg/dL 7-18 BUN) GLOMERULAR FILTRATION RATE (test mL/min >=60 code = GFR) CREATININE (test code = CREAT) mg/dL 0.55-1.02 BUN/CREATININE RATIO (test code = 10-20 BUN/CREA) CALCIUM (test code = CA) mg/dL 8.5-10.1 CBC W/AUTO [id number] 03:23:00 Test Item Value Reference Range Interpretation Comments WHITE BLOOD CELL (test code = 7.9 K/mm3 4.5-12.5 N WBC) RED BLOOD CELL (test code = 3.93 mill/mm3 3.7-5.2 N RBC) HEMOGLOBIN (test code = HGB) 11.7 gram/dL 11.5-15.5 N HEMATOCRIT (test code = HCT) 35.9 % 36.0-46.0 L MEAN CELL VOLUME (test code = 91.3 fL 80-98 N MCV) MEAN CELL HGB (test code = MCH) 29.8 picogram 27.0-33.0 N MEAN CELL HGB CONCETRATION 32.6 gram/dL 33.0-36.0 L (test code = MCHC) RED CELL DISTRIBUTION WIDTH 13.9 % 11.6-16.2 N (test code = RDW) RED CELL DISTRIBUTION WIDTH SD 47.0 fL 37.0-51.0 N (test code = RDW-SD) PLATELET COUNT (test code = 230 K/mm3 150-450 N PLT) MEAN PLATELET VOLUME (test code 10.4 fL 6.7-11.0 N = MPV) NEUTROPHIL % (test code = NT%) 48.9 % 39.0-69.0 N IMMATURE GRANULOCYTE % (test 1.8 % 0.0-5.0 N code = IG%) LYMPHOCYTE % (test code = LY%) 30.6 % 25.0-55.0 N MONOCYTE % (test code = MO%) 13.5 % 0.0-10.0 H EOSINOPHIL % (test code = EO%) 4.4 % 0.0-5.0 N BASOPHIL % (test code = BA%) 0.8 % 0.0-1.0 N NUCLEATED RBC % (test code = 0.0 % 0-0 N NRBC%) NEUTROPHIL # (test code = NT#) 3.85 K/mm3 1.8-7.7 N IMMATURE GRANULOCYTE # (test 0.14 x10 3/uL 0-0.03 H code = IG#) LYMPHOCYTE # (test code = LY#) 2.41 K/mm3 1.0-5.0 N MONOCYTE # (test code = MO#) 1.06 K/mm3 0-0.8 H EOSINOPHIL # (test code = EO#) 0.35 K/mm3 0.0-0.5 N BASOPHIL # (test code = BA#) 0.06 K/mm3 0.0-0.2 N NUCLEATED RBC # (test code = 0.00 K/mm3 0.0-0.1 N NRBC#) MANUAL DIFF REQUIRED (test code NO = MDIFF) - XR HIP W/PEL UNI 2+V [id number] 03:19:00 FAX: Wes Castro MD [phone] [place]: B St: REG Name: OMAIRA MORRIS [facility] : 1935 Age/S: 84/F Carlo Watts Unit#: [id number] Loc: [place] [address] Phys: Wes Castro MD Acct: [id number] Dis Date: Status: REG ER PHONE #: [phone] Exam Date: 12/05/2019 0255 FAX #: [phone] Reason: fall EXAMS: CPT CODE: [id number] XR HIP W/PEL UNI 2+[place] [id number] [id number] EXAM: - XR FEMUR MIN 2 VWS RT, - XR HIP W/PEL UNI 2+V RT HISTORY: fall COMPARISON: None FINDINGS: An intramedullary nail and hip screws traverse the right femoral neck fracture. No evidence of hardware failure or loosening. Major fracture fragments are in near anatomic position and alignment. No acute fracture or dislocation. The joint spaces are preserved. No aggressive osseous lesions. No soft tissue abnormality. IMPRESSION: No acute osseous abnormality. at 0319 Reported and signed by: Massimo Mckeon MD CC: Wes Castro MD Technologist: CINDY SUTHERLAND, RT(R) Trnscrd Date/Time/By: 12/05/2019 (0316) : By: [email or web address] Orig Print D/T: S: 12/05/2019 (0327) PAGE 1 Signed Report- XR FEMUR MIN 2 VWS [id number] 03:19:00 FAX: Wes Castro MD [phone] [place]: B St: REG Name: OMAIRA MORRIS [facility] : 1935 Age/S: 84/F Carlo Watts Unit#: [id number] Loc: [place], [place] [address] Phys: Wes Castro MD Acct: [id number] Dis Date: Status: REG ER PHONE #: [phone] Exam Date: 12/05/2019 030 FAX #: [phone] Reason: fall EXAMS: CPT CODE: [id number] XR FEMUR MIN 2 [place] [id number] R16 EXAM: - XR FEMUR MIN 2 VWS RT, - XR HIP W/PEL UNI 2+V RT HISTORY: fall COMPARISON: None FINDINGS: An intramedullary nail and hip screws traverse the right femoral neck fracture. No evidence of hardware failure or loosening. Major fracture fragments are in near anatomic position and alignment. No acute fracture or dislocation. The joint spaces are preserved. No aggressive osseous lesions. No soft tissue abnormality. IMPRESSION: No acute osseous abnormality. at 0319 Reported and signed by: Massimo Mckeon MD CC: Wes Castro MD Technologist: CINDY SUTHERLAND, RT(R) Trnscrd Date/Time/By: 12/05/2019 (0319) : By: [email or web address] Orig Print D/T: S: 12/05/2019 (0322) PAGE 1 Signed ReportCBC W/AUTO [id number] 03:16:00 Test Item Value Reference Range Interpretation Comments WHITE BLOOD CELL (test code = K/mm3 4.5-12.5 WBC) RED BLOOD CELL (test code = RBC) mill/mm3 3.7-5.2 HEMOGLOBIN (test code = HGB) 11.7 gram/dL 11.5-15.5 N HEMATOCRIT (test code = HCT) % 36.0-46.0 MEAN CELL VOLUME (test code = fL 80-98 MCV) MEAN CELL HGB (test code = MCH) picogram 27.0-33.0 MEAN CELL HGB CONCETRATION (test gram/dL 33.0-36.0 code = MCHC) RED CELL DISTRIBUTION WIDTH % 11.6-16.2 (test code = RDW) RED CELL DISTRIBUTION WIDTH SD fL 37.0-51.0 (test code = RDW-SD) PLATELET COUNT (test code = PLT) K/mm3 150-450 MEAN PLATELET VOLUME (test code fL 6.7-11.0 = MPV) NEUTROPHIL % (test code = NT%) % 39.0-69.0 IMMATURE GRANULOCYTE % (test % 0.0-5.0 code = IG%) LYMPHOCYTE % (test code = LY%) % 25.0-55.0 MONOCYTE % (test code = MO%) % 0.0-10.0 EOSINOPHIL % (test code = EO%) % 0.0-5.0 BASOPHIL % (test code = BA%) % 0.0-1.0 NEUTROPHIL # (test code = NT#) K/mm3 1.8-7.7 LYMPHOCYTE # (test code = LY#) K/mm3 1.0-5.0 MONOCYTE # (test code = MO#) K/mm3 0-0.8 EOSINOPHIL # (test code = EO#) K/mm3 0.0-0.5 BASOPHIL # (test code = BA#) K/mm3 0.0-0.2
[2020-03-15] MEDS ORDERED: NA CHLORIDE 0.9% 1,000 ML ONE (19:37)
--- NOTE | 2020-03-15 20:02 | RAD REPORT ---
EXAM DESCRIPTION: RAD - Chest Single View - 03/15/2020 7:51 pm CLINICAL HISTORY: ams Chest pain. COMPARISON: Chest Single View dated 01/30/2018; Chest Single View dated 09/14/2017; Chest Pa And Lat ( 2 Views) dated 06/16/2017; Chest Single View dated 06/07/2017 FINDINGS: Portable technique limits examination quality. Bilateral pulmonary opacities are present, mild in severity, suspicious for pulmonary edema or inters titial pneumonia. The heart is moderately enlarged. No displaced fractures.
[2020-03-15 20:06] LABS: Absolute Lymphocytes (CBC) 1.2 K/uL (0.7-4.9); Basophils % 0.3 % (0-1.3); Hematocrit 31.2 % (36.0-45.0); Lymphocytes % 12.3 % (15.3-44.8); MPV 8.6 fL (7.6-11.3); RBC Red Blood Cell Count 3.76 M/uL (3.86-4.86)
[2020-03-15 20:11] LABS: Protime INR 1.54
[2020-03-15] MEDS ORDERED: FAMOTIDINE 20 MG/2 ML VIAL IV ONE (20:14)
[2020-03-15] MEDS ORDERED: ACETAMINOPHEN 650MG/RECT SUPP PR ONE (20:14)
[2020-03-15] MEDS ORDERED: CEFTRIAXONE/SWI 1gm 1 GM/10 ML SYR ONE (20:14)
--- NOTE | 2020-03-15 20:21 | RAD REPORT ---
EXAM DESCRIPTION: CT - Head Brain Wo Cont - 03/15/2020 8:10 pm CLINICAL HISTORY: MENTAL STATUS CHANGE Headache, drowsiness COMPARISON: Head Brain Wo Cont dated 02/17/2017 TECHNIQUE: All CT scans are performed using dose optimization technique as appropriate and may inclu de automated exposure control or mA/KV adjustment according to patient size. FINDINGS: No intracranial hemorrhage, hydrocephalus or extra-axial fluid collection.Moderate general ized brain atrophy is present with moderate periventricular and deep white matter chronic microvascul ar ischemic changes.No areas of brain edema or evidence of midline shift. The paranasal sinuses and mastoids are clear. The calvarium is intact. Heavy vertebral atherosclerosi s. IMPRESSION: No acute intracranial abnormality.
[2020-03-15 20:32] LABS: ALT/SGPT 10 U/L (12-78); AST/SGOT 18 U/L (15-37); Albumin 2.7 g/dL (3.4-5.0); Alkaline Phosphatase 84 U/L (45-117); Amylase 93 U/L (25-115); BUN Blood Urea Nitrogen 25 mg/dL (7-18); Bicarbonate 26 mmol/L (21-32); Bilirubin Direct 0.2 mg/dL (0-0.2); Bilirubin Total 0.7 mg/dL (0.2-1.0); CKMB Creatine Kinase MB < 1.0 ng/mL (0.3-3.6); Creatine Phosphokinase 25 U/L (26-192); Glucose Level 96 mg/dL (74-106); Lipase 30 U/L (73-393); Potassium 3.7 mmol/L (3.5-5.1); Sodium Level 137 mmol/L (136-145); Troponin (Emerg Dept Use Only) < 0.02 ng/mL (0.0-0.045)
[2020-03-15 20:34] LABS: Urine Blood 1+ (NEG); Urine Glucose NEGATIVE (NEG); Urine Protein NEGATIVE (NEG); Urine Specific Gravity 1.015 (1.005-1.030)
[2020-03-15 20:40] LABS: Urine Bacteria 20-50 /HPF (<20); Urine Culture Reflex Order REFLEXED; Urine Mucus 2+ /HPF (NONE SEEN)
[2020-03-15] MEDS ORDERED: Levofloxacin500mg IV 500 MG/100 ML BAG IV ONE (20:43)
--- NOTE | 2020-03-15 21:51 | ER ---
Nurse's Notes [facility] Name: Kayla Marie Age: 84 yrs Sex: Female : 1935 Arrival Date: 03/15/2020 Time: 19:19 Bed 26 Private MD: Diagnosis: Altered mental status, unspecified;Hypotension;Weakness;Urinary tract infection, site not specified;Bradycardia, unspecified;Anemia, unspecified;Unspecified combined systolic (congestive) and diastolic (congestive) heart failure Presentation: 03/15 19:19 Chief complaint: EMS states: Pt coming from [facility], facility staff reported ea pt was altered and her sats were in the 80%, she was placed on a non rebreather, EMS reported pt was hypotensive and was responsive to verbal stimulus. Facility staff stated they noticed patient started acting altered about thirty minutes ago. Coronavirus screen: At this time, the client does not indicate any symptoms associated with coronavirus-19. Ebola Screen: No symptoms or risks identified at this time. Initial Sepsis Screen: Does the patient meet any 2 criteria? Systolic BP < 90 mmHg. Altered Mental Status. Does the patient have a suspected source of infection? No. Patient's initial sepsis screen is negative. Risk Assessment: Do you want to hurt yourself or someone else? Patient reports no desire to harm self or others. Onset of symptoms was March 15, 2020. 19:19 Method Of Arrival: EMS: [facility] ea 19:19 Acuity: REGINA 2 iw Triage Assessment: 19:19 General: Appears in no apparent distress. Behavior is drowsy, quiet. Pain: Denies pain. ea Historical: - Allergies: 19:53 Lorazepam; ea 19:53 Sulfa (Sulfonamide Antibiotics); ea 19:53 eggplant; ea - Home Meds: 19:53 apixaban 5 mg Oral 1 tab Q EVENING [Active]; spironolactone 25 mg Oral tab 1 tab 2 ea times per day [Active]; acetaminophen 325 mg Oral tab 2 tabs every 6 hours [Active]; aspirin 81 mg Oral TbEC 1 tab once daily [Active]; cetirizine 10 mg oral tab 1 tab once daily [Active]; Depakote Sprinkles 125 mg Oral cpSP 2 caps 2 times per day [Active]; furosemide 40 mg Oral tab [Active]; hydrocodone-acetaminophen 10-325 mg Oral tab 1 tab three times a day [Active]; Keppra 500 mg Oral tab 1 tab 2 times per day [Active]; Lantus 100 unit/mL Sub-Q soln [Active]; magnesium oxide 400 mg Oral tab daily [Active]; melatonin 3 mg Oral tab [Active]; metformin 500 mg Oral tab 2 times per day [Active]; Omeprazole Oral [Active]; polyethylene glycol 8000(bulk) miscellaneous powd daily [Active]; potassium chloride 10 mEq Oral cpER 1 cap once daily [Active]; quetiapine 25 mg oral tab 1 tab [Active]; sertraline 50 mg oral tab 1 tab once daily [Active]; sotalol 160 mg Oral tab 1 tab 2 times per day [Active]; - PMHx: 19:53 Seizures; Osteoporosis; right hip fx; Nerve stimulator; macular degeneration; Lupus; ea legally blind; Hypertension; Diabetes - IDDM; Dementia; COPD; CHF; CAD; Atrial Fib; Aortic Stenosis; Anxiety; - PSHx: 19:53 Unable to obtain; ea - Immunization history:: Adult Immunizations up to date. - Social history:: Smoking status: unknown. Screenin:38 Abuse screen: Denies threats or abuse. Nutritional screening: No deficits noted. ea Tuberculosis screening: No symptoms or risk factors identified. Fall Risk IV access (20 points). Assessment: 19:19 General: Appears in no apparent distress. Behavior is drowsy, quiet. Pain: Denies pain. ea Neuro: Level of Consciousness is responds to verbal stimulus. Oriented to person, Speech is normal, Facial symmetry appears normal. Cardiovascular: Patient's skin is warm and dry. Respiratory: Airway is patent Respiratory effort is even, unlabored, Respiratory pattern is regular, symmetrical. Derm: Skin is dry, Skin is pale, Skin temperature is warm. 19:55 Reassessment: pt taken to CT. ea 21:29 Reassessment: Patient and/or family updated on plan of care and expected duration. Pain ea level reassessed. Pt resting with eyes closed, respirations even and unlabored, chest expansions even and symmetrical. 23:08 Reassessment: Patient and/or family updated on plan of care and expected duration. Pain mg2 level reassessed. Pt resting with eyes closed, respirations even and unlabored. Chest expansions even and symmetrical. Vital Signs: 19:19 BP 78 / 54; Pulse 58; Resp 19; Temp 98.6(O); Pulse Ox 80% on R/A; Weight 77.11 kg; ea 19:54 BP 85 / 51; Pulse 58; Resp 18; Temp 99.7(C); Pulse Ox 96% on 4 lpm NC; ea 20:23 BP 84 / 55; Pulse 61; Resp 20; Pulse Ox 98% ; ea 21:21 BP 98 / 54; Pulse 64; Resp 18; Temp 98.7; Pulse Ox 97% on 4 lpm NC; mg2 21:59 BP 112 / 88; Pulse 67; Resp 20; Pulse Ox 97% on NC; ea 23:30 BP 114 / 88; Pulse 52; Resp 18; Pulse Ox 98% on 4 lpm NC; mg2 03/16 00:25 BP 108 / 86; Pulse 55; Resp 18; Temp 97.9; Pulse Ox 100% 3 lpm ; Weight 75.84 kg (M); ch2 Height 5 ft. 3 in. (160.02 cm) (R); Pain 0/10; 00:25 Body Mass Index 29.62 (75.84 kg, 160.02 cm) ch2 03/15 19:19 pt placed on nasal cannula at 4L sats 95% ea NIH Stroke Scale Scores: 20:02 NIHSS Score: 0 yisel ED Course: 19:19 Patient arrived in ED. iw 19:19 Chao Jansen MD is Attending Physician. yisel 19:19 Arm band placed on right wrist. Patient placed in an exam room, on a stretcher, on ea oxygen, on cardiac cath lab radiology technologist, on pulse oximetry. 19:19 Maintain EMS IV. Dressing intact. Good blood return noted. Site clean \T\ dry. Gauge \T\ ea site: 20G lac. 19:38 Constance Huffman, RN is Primary Nurse. ea 19:38 Patient has correct armband on for positive identification. Bed in low position. Call ea light in reach. Side rails up X2. panel monitor on. Pulse ox on. NIBP on. 19:40 Inserted saline lock: 20 gauge in right forearm, using aseptic technique. Blood ds4 collected. 19:43 Triage completed. ea 19:43 Mena cath inserted, using sterile technique, 16 Fr., returned clear yellow urine. mg2 Patient tolerated well. 19:51 Chest Single View XRAY In Process Unspecified. EDMS 20:10 CT Head Brain wo Cont In Process Unspecified. EDMS 21:31 No provider procedures requiring assistance completed. Patient admitted, IV remains in ea place. 21:50 Mike Hall MD is Hospitalizing Provider. [facility] 23:58 Primary Nurse role handed off by Constance Huffman RN mw2 03/16 00:19 Report received from Constance Huffman RN. ch2 Administered Medications: 03/15 19:19 Drug: NS 0.9% (30 ml/kg) 30 ml/kg Route: IV; Rate: bolus; Site: right antecubital; ea 22:01 Follow up: Response: No adverse reaction; IV Status: Completed infusion; IV Intake: ea 2300ml 20:14 Drug: Pepcid 20 mg Route: IVP; Site: right antecubital; ea 21:00 Follow up: Response: No adverse reaction ea 20:14 Drug: Rocephin 1 grams Route: IV; Rate: per protocol; Site: right antecubital; ea 21:00 Follow up: Response: No adverse reaction; IV Status: Completed infusion ea 20:14 Drug: Tylenol Suppository 650 mg Route: [place]; ea 21:00 Follow up: Response: No adverse reaction ea 20:38 Drug: levofloxacin 500 mg Volume: 100 ml; Route: IVPB; Infused Over: 60 mins; Site: ea right antecubital; 21:30 Follow up: Response: No adverse reaction; IV Status: Completed infusion ea 23:30 Drug: Lasix 20 mg Route: IVP; Site: right forearm; mg2 Point of Care Testing: Guaiac: 20:28 Stool Guaiac: Negative; Stool Hemoccult Control: Pass; mw2 Intake: 22:01 IV: 2300ml; Total: 2300ml. ea Output: 03/16 00:00 Urine: 1800ml (Mena); Total: 1800ml. ea Outcome: 03/15 21:51 Decision to Hospitalize by Provider. yisel 23:07 Condition: stable mg2 23:07 Instructed on the need for admit. 23:30 Admitted to ER Hold. Please see [facility] for further documentation. mg2 23:58 Patient left the ED. mw2 03/16 16:32 Patient left the ED. NIH Stroke Scale - NIH Stroke Score Date: 03/15/2020 Time: 20:02 Total Score = 0 1a. Level of Consciousness (LOC) - 0(Alert) 1b. Level of Consciousness (LOC) (Year \T\ Age) - 0(Both) 1c. LOC Commands (Open \T\ Closes Eyes/Referral Coordinator) - 0(Both) 2. Best Gaze (Lateral Gaze Paresis) - 0(Normal) 3. Visual Field Loss - 0(No visual loss) 4. Facial Palsy - 0(Normal) 5a. Left Arm: Motor (10-second hold) - 0(No drift) 5b. Right Arm: Motor (10-second hold) - 0(No drift) 6a. Left Leg: Motor (5-second hold - always test supine) - 0(No drift) 6b. Right Leg: Motor (5-second hold - always test supine) - 0(No drift) 7. Limb Ataxia (finger/nose \T\ heel/melchor - test with eyes open) - 0(Absent) 8. Sensory Loss (pinprick arms/legs/face) - 0(Normal) 9. Best Language: Aphasia (description/naming/reading) - 0(No aphasia) 10. Dysarthria (speech clarity - read or repeat words) - 0(Normal) 11. Extinction and Inattention (visual/tactile/auditory/spatial/personal) - 0(No abnormality) Initials: yisel Signatures: Dispatcher [employer] Chao Verduzco MD MD cha Williams, Irene, RN RN iw Rosario Roque RN RN ss Swanson, Donovan ds4 Constance Huffman RN RN ea Hanna, Candace, RN RN ch2 Beatris Clay 2 Octavio Hercules RN RN mg2 Corrections: (The following items were deleted from the chart) 03/15 19:50 19:19 Acuity: REGINA 3 ea iw 03/16 00:23 00:19 Report received from constance sauceda ch2 ch2
--- NOTE | 2020-03-15 21:52 | EDPHYS ---
Physician Documentation [facility] Name: Kayla Marie Age: 84 yrs Sex: Female : 1935 Arrival Date: 03/15/2020 Time: 19:19 Bed 26 Private MD: ED Physician Chao Jansen HPI: 03/15 20:01 This 84 yrs old Female presents to ER via EMS with complaints of Altered yisel Mental Status. 20:01 The patient presents with confusion, decreased mental status, decreased responsiveness, yisel trouble concentrating. Onset: The symptoms/episode began/occurred 1 day(s) ago. Possible causes: CVA or TIA, head injury, low blood sugar, seizure, sepsis. Associated signs and symptoms: Pertinent positives: weakness, . Current symptoms: In the emergency department the patient's symptoms are unchanged from the initial presentation, despite EMS interventions. Patient's baseline: Neuro: alert and fully oriented. It is unknown whether or not the patient has had similar symptoms in the past. Historical: - Allergies: 19:53 Lorazepam; ea 19:53 Sulfa (Sulfonamide Antibiotics); ea 19:53 eggplant; ea - Home Meds: 19:53 apixaban 5 mg Oral 1 tab Q EVENING [Active]; spironolactone 25 mg Oral tab 1 tab 2 ea times per day [Active]; acetaminophen 325 mg Oral tab 2 tabs every 6 hours [Active]; aspirin 81 mg Oral TbEC 1 tab once daily [Active]; cetirizine 10 mg oral tab 1 tab once daily [Active]; Depakote Sprinkles 125 mg Oral cpSP 2 caps 2 times per day [Active]; furosemide 40 mg Oral tab [Active]; hydrocodone-acetaminophen 10-325 mg Oral tab 1 tab three times a day [Active]; Keppra 500 mg Oral tab 1 tab 2 times per day [Active]; Lantus 100 unit/mL Sub-Q soln [Active]; magnesium oxide 400 mg Oral tab daily [Active]; melatonin 3 mg Oral tab [Active]; metformin 500 mg Oral tab 2 times per day [Active]; Omeprazole Oral [Active]; polyethylene glycol 8000(bulk) miscellaneous powd daily [Active]; potassium chloride 10 mEq Oral cpER 1 cap once daily [Active]; quetiapine 25 mg oral tab 1 tab [Active]; sertraline 50 mg oral tab 1 tab once daily [Active]; sotalol 160 mg Oral tab 1 tab 2 times per day [Active]; - PMHx: 19:53 Seizures; Osteoporosis; right hip fx; Nerve stimulator; macular degeneration; Lupus; ea legally blind; Hypertension; Diabetes - IDDM; Dementia; COPD; CHF; CAD; Atrial Fib; Aortic Stenosis; Anxiety; - PSHx: 19:53 Unable to obtain; ea - Immunization history:: Adult Immunizations up to date. - Social history:: Smoking status: unknown. ROS: 20:02 Constitutional: Negative for fever, chills, and weight loss, Eyes: Negative for injury, yisel pain, redness, and discharge, ENT: Negative for injury, pain, and discharge, Neck: Negative for injury, pain, and swelling, Cardiovascular: Negative for chest pain, palpitations, and edema, Respiratory: Negative for shortness of breath, cough, wheezing, and pleuritic chest pain, Abdomen/GI: Negative for abdominal pain, nausea, vomiting, diarrhea, and constipation, Back: Negative for injury and pain, : Negative for injury, bleeding, discharge, and swelling, MS/Extremity: Negative for injury and deformity, Psych: Negative for depression, anxiety, suicide ideation, homicidal ideation, and hallucinations, Allergy/Immunology: Negative for hives, rash, and allergies, Endocrine: Negative for neck swelling, polydipsia, polyuria, polyphagia, and marked weight changes, Hematologic/Lymphatic: Negative for swollen nodes, abnormal bleeding, and unusual bruising. 20:02 Skin: Positive for pallor. 20:02 Neuro: Positive for altered mental status, near syncope, weakness. Exam: 20:02 Constitutional: This is a well developed, well nourished patient who is awake, alert, yisel and in no acute distress. Head/Face: Normocephalic, atraumatic. Eyes: Pupils equal round and reactive to light, extra-ocular motions intact. Lids and lashes normal. Conjunctiva and sclera are non-icteric and not injected. Cornea within normal limits. Periorbital areas with no swelling, redness, or edema. ENT: Nares patent. No nasal discharge, no septal abnormalities noted. Tympanic membranes are normal and external auditory canals are clear. Oropharynx with no redness, swelling, or masses, exudates, or evidence of obstruction, uvula midline. Mucous membranes moist. Neck: Trachea midline, no thyromegaly or masses palpated, and no cervical lymphadenopathy. Supple, full range of motion without nuchal rigidity, or vertebral point tenderness. No Meningismus. Chest/axilla: Normal chest wall appearance and motion. Nontender with no deformity. No lesions are appreciated. Cardiovascular: Regular rate and rhythm with a normal S1 and S2. No gallops, murmurs, or rubs. Normal PMI, no JVD. No pulse deficits. Respiratory: Lungs have equal breath sounds bilaterally, clear to auscultation and percussion. No rales, rhonchi or wheezes noted. No increased work of breathing, no retractions or nasal flaring. Abdomen/GI: Soft, non-tender, with normal bowel sounds. No distension or tympany. No guarding or rebound. No evidence of tenderness throughout. Back: No spinal tenderness. No costovertebral tenderness. Full range of motion. Female : Normal external genitalia. MS/ Extremity: Pulses equal, no cyanosis. Neurovascular intact. Full, normal range of motion. Psych: Awake, alert, with orientation to person, place and time. Behavior, mood, and affect are within normal limits. 20:02 Skin: Appearance: Color: pale, Temperature: normal temperature, Moisture: normal moisture, petechiae, not noted, ecchymosis, not noted, cellulitis, is not appreciated. 20:02 Neuro: Orientation: appropriate for stated age, Mentation: slow to respond, Memory: unable to test, Cranial nerves: is grossly normal based on the patient's age, no acute changes, Cerebellar function: is grossly normal based on the patient's age, Motor: moves all fours, Sensation: no obvious gross deficits, Gait: not tested. Deep tendon reflexes are 1 (trace) + in the bilateral brachioradialis, bicep, tricep and patellar and Achilles tendons, seizure activity, is not displayed by the patient. 20:06 Abdomen/GI: Rectal exam: is unremarkable, rectal tone Stool: guaiac negative, yisel hemorrhoid(s), are not appreciated, mass, is not appreciated, swelling, is not appreciated, tenderness, is not appreciated, Liver: no appreciated palpable abnormalities, Hernia: not appreciated. Vital Signs: 19:19 BP 78 / 54; Pulse 58; Resp 19; Temp 98.6(O); Pulse Ox 80% on R/A; Weight 77.11 kg; ea 19:54 BP 85 / 51; Pulse 58; Resp 18; Temp 99.7(C); Pulse Ox 96% on 4 lpm NC; ea 20:23 BP 84 / 55; Pulse 61; Resp 20; Pulse Ox 98% ; ea 21:21 BP 98 / 54; Pulse 64; Resp 18; Temp 98.7; Pulse Ox 97% on 4 lpm NC; mg2 21:59 BP 112 / 88; Pulse 67; Resp 20; Pulse Ox 97% on NC; ea 23:30 BP 114 / 88; Pulse 52; Resp 18; Pulse Ox 98% on 4 lpm NC; mg2 03/16 00:25 BP 108 / 86; Pulse 55; Resp 18; Temp 97.9; Pulse Ox 100% 3 lpm ; Weight 75.84 kg (M); ch2 Height 5 ft. 3 in. (160.02 cm) (R); Pain 0/10; 00:25 Body Mass Index 29.62 (75.84 kg, 160.02 cm) [facility] 03/15 19:19 pt placed on nasal cannula at 4L sats 95% ea NIH Stroke Scale Scores: 20:02 NIHSS Score: 0 yisel MDM: 19:19 Patient medically screened. yisel 20:05 Differential Diagnosis altered mental status, sepsis. Differential Diagnosis: CVA, yisel electrolyte abnormality, hypoglycemia, intracranial bleed, pneumonia, seizure, sepsis, TIA, UTI, volume depletion. Data reviewed: vital signs, nurses notes, EMS record, [place] [facility] records, old medical records, lab test result(s), EKG, radiologic studies. Data interpreted: craps dealer: rate is 58 beats/min, rhythm is regular, Pulse oximetry: on room air is 96 %. Test interpretation: by ED physician or midlevel provider: ECG, plain radiologic studies. Counseling: I had a detailed discussion with the patient and/or guardian regarding: the historical points, exam findings, and any diagnostic results supporting the discharge/admit diagnosis, lab results, radiology results, the need for further work-up and treatment in the hospital. 21:51 ED course: pt bp improved, more responsive, cultures pending, will admit to dr kerri cha explained to the patient. 03/15 19:36 Order name: Amylase, Serum; Complete Time: 21:48 [facility] 03/15 19:36 Order name: Basic Metabolic Panel; Complete Time: 21:48 [facility] 03/15 19:36 Order name: Blood Culture Adult (2) [facility] 03/15 19:36 Order name: CBC with Diff; Complete Time: 21:48 [facility] 03/15 19:36 Order name: Ckmb; Complete Time: 21:48 [facility] 03/15 19:36 Order name: CPK; Complete Time: 21:48 [facility] 03/15 19:36 Order name: Lactate; Complete Time: 21:48 [facility] 03/15 19:36 Order name: LFT's; Complete Time: 21:48 [facility] 03/15 19:36 Order name: Lipase; Complete Time: 21:48 [facility] 03/15 19:36 Order name: Procalcitonin; Complete Time: 21:48 [facility] 03/15 19:36 Order name: Protime (+inr); Complete Time: 21:48 [facility] 03/15 19:36 Order name: Ptt, Activated; Complete Time: 21:48 [facility] 03/15 19:36 Order name: Troponin (emerg Dept Use Only); Complete Time: 21:48 [facility] 03/15 19:36 Order name: Urine Microscopic Only; Complete Time: 21:48 [facility] 03/15 19:38 Order name: Glucose, Ancillary Testing; Complete Time: 21:48 [facility] 03/15 19:58 Order name: Type And Screen; Complete Time: 21:48 [facility] 03/15 19:58 Order name: Magnesium; Complete Time: 21:48 [facility] 03/15 19:58 Order name: NT PRO-BNP; Complete Time: 21:48 [facility] 03/15 19:58 Order name: Depakote; Complete Time: 21:48 [facility] 03/15 19:58 Order name: COVID-19 [facility] 03/15 19:58 Order name: Flu; Complete Time: 21:48 [facility] 03/15 20:09 Order name: Urine Dipstick--Ancillary (enter results); Complete Time: 21:48 [facility] 03/15 20:41 Order name: Urine Culture [facility] 03/15 22:11 Order name: SARS-COV-2 RT PCR; Complete Time: 23:25 EDMD 03/16 09:17 Order name: Glucose, Ancillary Testing [facility] 03/16 09:41 Order name: Glucose, Ancillary Testing [facility] 03/16 10:06 Order name: CBC with Automated Diff EDMD 03/16 10:25 Order name: Lactate EDMD 03/16 11:12 Order name: Glucose, Ancillary Testing [facility] 03/15 19:36 Order name: Chest Single View XRAY; Complete Time: 21:48 [facility] 03/15 19:36 Order name: Accucheck; Complete Time: 19:36 [facility] 03/15 19:36 Order name: Cardiac monitoring; Complete Time: 19:36 [facility] 03/15 19:36 Order name: EKG - Nurse/Tech; Complete Time: 19:36 [facility] 03/15 19:36 Order name: IV Saline Lock - Large Bore; Complete Time: 19:37 [facility] 03/15 19:36 Order name: Labs collected and sent; Complete Time: 19:37 [facility] 03/15 19:36 Order name: O2 Per Protocol; Complete Time: 19:37 [facility] 03/15 19:36 Order name: O2 Sat Monitoring; Complete Time: 19:37 [facility] 03/15 19:36 Order name: Urine Dipstick-Ancillary (obtain specimen); Complete Time: 19:37 [facility] 03/15 19:58 Order name: EKG; Complete Time: 19:59 [facility] 03/15 19:58 Order name: IV Saline Lock; Complete Time: 20:00 [facility] 03/15 19:58 Order name: CT Head Brain wo Cont; Complete Time: 21:48 [facility] 03/16 13:29 Order name: Glucose, Ancillary Testing [facility] 03/16 14:18 Order name: Gram Stain--Aerobic Bottle [facility] 03/16 14:18 Order name: Gram Stain--Anaerobic Bottle [facility] Administered Medications: 19:19 Drug: NS 0.9% (30 ml/kg) 30 ml/kg Route: IV; Rate: bolus; Site: right antecubital; ea 22:01 Follow up: Response: No adverse reaction; IV Status: Completed infusion; IV Intake: ea 2300ml 20:14 Drug: Pepcid 20 mg Route: IVP; Site: right antecubital; ea 21:00 Follow up: Response: No adverse reaction ea 20:14 Drug: Rocephin 1 grams Route: IV; Rate: per protocol; Site: right antecubital; ea 21:00 Follow up: Response: No adverse reaction; IV Status: Completed infusion ea 20:14 Drug: Tylenol Suppository 650 mg Route: KS; ea 21:00 Follow up: Response: No adverse reaction ea 20:38 Drug: levofloxacin 500 mg Volume: 100 ml; Route: IVPB; Infused Over: 60 mins; Site: ea right antecubital; 21:30 Follow up: Response: No adverse reaction; IV Status: Completed infusion ea 23:30 Drug: Lasix 20 mg Route: IVP; Site: right forearm; mg2 Point of Care Testing: Guaiac: 20:28 Stool Guaiac: Negative; Stool Hemoccult Control: Pass; mw2 Disposition: 03/15/20 21:51 Hospitalization ordered by Mike Hall for Inpatient Admission. Preliminary diagnosis are Altered mental status, unspecified, Hypotension, Weakness, Urinary tract infection, site not specified, Bradycardia, unspecified, Anemia, unspecified, Unspecified combined systolic (congestive) and diastolic (congestive) heart failure. - Bed requested for Telemetry/MedSurg (Inpatient). - Status is Inpatient Admission. ss - Condition is Fair. - Problem is new. - Symptoms have improved. NIH Stroke Scale - NIH Stroke Score Date: 03/15/2020 Time: 20:02 Total Score = 0 1a. Level of Consciousness (LOC) - 0(Alert) 1b. Level of Consciousness (LOC) (Year \T\ Age) - 0(Both) 1c. LOC Commands (Open \T\ Closes Eyes/Air Marshal) - 0(Both) 2. Best Gaze (Lateral Gaze Paresis) - 0(Normal) 3. Visual Field Loss - 0(No visual loss) 4. Facial Palsy - 0(Normal) 5a. Left Arm: Motor (10-second hold) - 0(No drift) 5b. Right Arm: Motor (10-second hold) - 0(No drift) 6a. Left Leg: Motor (5-second hold - always test supine) - 0(No drift) 6b. Right Leg: Motor (5-second hold - always test supine) - 0(No drift) 7. Limb Ataxia (finger/nose \T\ heel/melchor - test with eyes open) - 0(Absent) 8. Sensory Loss (pinprick arms/legs/face) - 0(Normal) 9. Best Language: Aphasia (description/naming/reading) - 0(No aphasia) 10. Dysarthria (speech clarity - read or repeat words) - 0(Normal) 11. Extinction and Inattention (visual/tactile/auditory/spatial/personal) - 0(No abnormality) Initials: yisel Signatures: Dispatcher [employer] EDMD Yoselin Rm RN RN Corinna Daugherty RN Chao Perez MD MD cha Smirch, Shelby, RN RN Constance Huffman RN RN Beatris Clay mw2 Octavio Hercules RN RN mg2 Corrections: (The following items were deleted from the chart) 20:45 19:59 CORONAVIRUS+MR.LAB.BRZ ordered. [facility] EDMS 23:03 21:51 Hospitalization Ordered by Mike Hall MD for Inpatient Admission. Preliminary diagnosis is Altered mental status, unspecified; Hypotension; Weakness; Urinary tract infection, site not specified. Bed requested for Telemetry/MedSurg (Inpatient). Status is Inpatient Admission. Condition is Fair. Problem is new. Symptoms have improved. [facility] 23:15 23:03 03/15/2020 21:51 Hospitalization Ordered by Mike Hall MD for Inpatient Admission. Preliminary diagnosis is Altered mental status, unspecified; Hypotension; Weakness; Urinary tract infection, site not specified. Bed requested for Telemetry/MedSurg (Inpatient). Status is Inpatient Admission. Condition is Fair. Problem is new. Symptoms have improved. 23:28 23:15 03/15/2020 21:51 Hospitalization Ordered by Mike Hall MD for [facility] Inpatient Admission. Preliminary diagnosis is Altered mental status, unspecified; Hypotension; Weakness; Urinary tract infection, site not specified. Bed requested for [facility] ER HOLD. Status is Inpatient Admission. Condition is Fair. Problem is new. Symptoms have improved. 23:58 23:28 03/15/2020 21:51 Hospitalization Ordered by Mike Hall MD for 2 Inpatient Admission. Preliminary diagnosis is Altered mental status, unspecified; Hypotension; Weakness; Urinary tract infection, site not specified; Bradycardia, unspecified; Anemia, unspecified; Unspecified combined systolic (congestive) and diastolic (congestive) heart failure. Bed requested for [facility] ER HOLD. Status is Inpatient Admission. Condition is Fair. Problem is new. Symptoms have improved. [facility] 03/16 15:13 03/15 23:58 03/15/2020 21:51 Hospitalization Ordered by Mike Hall MD for Inpatient Admission. Preliminary diagnosis is Altered mental status, unspecified; Hypotension; Weakness; Urinary tract infection, site not specified; Bradycardia, unspecified; Anemia, unspecified; Unspecified combined systolic (congestive) and diastolic (congestive) heart failure. Bed requested for [facility] ER HOLD. Status is Inpatient Admission. Condition is Fair. Problem is new. Symptoms have improved. mw2 03/16 16:32 15:13 03/15/2020 21:51 Hospitalization Ordered by Mike Hall MD for Inpatient Admission. Preliminary diagnosis is Altered mental status, unspecified; Hypotension; Weakness; Urinary tract infection, site not specified; Bradycardia, unspecified; Anemia, unspecified; Unspecified combined systolic (congestive) and diastolic (congestive) heart failure. Bed requested for Telemetry/MedSurg (Inpatient). Status is Inpatient Admission. Condition is Fair. Problem is new. Symptoms have improved. dw
[2020-03-15] MEDS ORDERED: POLYETHYL GLY 3350 17 GM/DOSE PO PRN (23:37)
--- NOTE | 2020-03-15 23:40 | P.HP ---
Certification for Inpatient With expected LOS: >2 Midnights Patient will require the following post-hospital care: None Practitioner: I am a practitioner with admitting privileges, knowledge of patient current condition, hospital course, and medical plan of care. Services: Services provided to patient in accordance with Admission requirements found in Title 42 Section 412.3 of the Code of Federal Regulations <Melquiades Nation - Last Filed: 03/15/20 23:44> Patient History Date of Service: 03/15/20 Reason for admission: Sepsis/UTI/pneumonia History of Present Illness: 84-year-old female resident of a [facility]pc brought to the emergency room for altered mental status. Patient in the [facility] seemed confused with decreased mental status and decreased responsiveness. Also was noted to have trouble concentrating. In the emergency room patient was found to be slightly hypotensive. Lab work shows a UA with positive leukocyte esterase and white cells of 10-20 consistent with a urinary tract infection. Chest x-ray shows bilateral pulmonary opacities consistent with interstitial pneumonia. CT of the head was negative for acute pathology. Sepsis protocol was initiated and patient responded well. Blood pressure improved and she is more alert. Baseline unknown. Patient was started on IV Rocephin and azithromycin to cover the urinary tract infection and pneumonia. Patient will be admitted and further evaluated. - Past Medical/Surgical History Has patient received pneumonia vaccine in the past: Yes Diabetic: Yes -: Lupus -: Afib -: Arthritis -: Macular degeneration -: IDDM -: CHF -: Nerve stimulator -: COPD -: Dementia -: HTN -: Seizures -: Anxiety -: Appy -: Ovarian cysts -: hernia repair -: hysterectomy -: nose sx -: cholesysectomy -: lysis of adhesions to bowel -: R hip fracture Psychosocial/ Personal History: From [facility]pc - Family History Mother -: Heart disease, Diabetes Notes: CHF Father -: Heart disease Notes: CHF Brother -: Heart disease, Cancer Notes: CHF. Prostated cancer - Social History Smoking Status: Never smoker Alcohol use: No CD- Drugs: No Caffeine use: No Place of Residence: Care Home <Melquiades Nation - Last Filed: 03/15/20 23:44> Date of Service: 03/15/20 <Mike Hall - Last Filed: 08/28/20 23:00> Allergies Sulfa (Sulfonamide Antibiotics) Allergy (Unknown, Verified 06/07/17 05:24) UNKNOWN lorazepam Adverse Reaction (Verified 06/07/17 15:22) UNknown eggplant Allergy (Uncoded 01/30/18 21:36) Unknown vinagar Allergy (Uncoded 01/30/18 21:36) Unknown vinegar Adverse Reaction (Unknown, Uncoded 06/07/17 05:24) Rash Home Medications: Acetaminophen [Tylenol -Tablet] 650 mg PO Q6HP PRN 03/16/20 Apixaban [Eliquis] 5 mg PO BEDTIME 03/16/20 Aspirin Chewable [Aspirin Chewable*] 81 mg PO DAILY 03/16/20 Cetirizine HCl [Zyrtec] 10 mg PO DAILY 03/16/20 Divalproex [Depakote Sprinkle] 250 mg PO BID 03/16/20 Furosemide [Lasix] 40 mg PO BID 03/16/20 Hydrocodone Bit/Acetaminophen [Hydrocodon-Acetaminophn 10-325] 1 tab PO TIDP PRN 03/16/20 Insulin Glargine Human [Lantus*] 40 units SQ DAILY 03/16/20 Magnesium Oxide [Mag 0X Tab] 400 mg PO BID 03/16/20 Melatonin [Melatonin*] 6 mg PO BEDTIME 03/16/20 Metformin HCl [Glucophage] 500 mg PO BIDWM 03/16/20 Omeprazole 20 mg PO DAILY 03/16/20 Polyethylene Glycol 3350 [Miralax] 17 gm PO DAILY PRN 03/16/20 Potassium Chloride [K-Dur] 10 meq PO DAILY 03/16/20 Quetiapine [Seroquel] 25 mg PO BEDTIME 03/16/20 Sotalol HCl [Betapace] 160 mg PO BID 03/16/20 Spironolactone [Aldactone] 25 mg PO BID 03/16/20 levETIRAcetam [Keppra Tab] 500 mg PO BID 03/16/20 Review of Systems is unable to be obtained <Melquiades Nation - Last Filed: 03/15/20 23:44> Physical Examination - Vital Signs Temperature: 99.7 F Blood Pressure: 78/54 Pulse: 58 Respirations: 20 Pulse Ox (%): 80 (RA) - Physical Exam General: Alert, In no apparent distress, Oriented x1 HEENT: Atraumatic, Normocephalic, PERRLA Neck: Supple, Other (Trachea midline) Respiratory: Diminished Cardiovascular: No edema, Normal pulses, Irregular heart rate/rhythm Capillary refill: <2 Seconds Gastrointestinal: Normal bowel sounds, Soft and benign, Non-distended Musculoskeletal: No clubbing, No swelling, No contractures, No erythema Integumentary: No rashes, No breakdown, No significant lesion, No tenderness/swelling Neurological: Normal speech, Normal strength at 5/5 x4 extr, Normal tone, Abnormal gait - Studies Laboratory Data (last 24 hrs) 03/15/20 19:50: Magnesium 2.0 03/15/20 19:50: PT 18.0 H, INR 1.54, APTT 35.4 03/15/20 19:50: WBC 9.7, Hgb 10.2 L, Hct 31.2 L, Plt Count 168 03/15/20 19:50: Sodium 137, Potassium 3.7, BUN 25 H, Creatinine 0.99, Glucose 96, Total Bilirubin 0.7, AST 18, ALT 10 L, Alkaline Phosphatase 84, Amylase 93, Lipase 30 L Microbiology Data (last 24 hrs): 03/15/20 20:00 Nasopharnyx Influenza Type A Antigen Screen - Final 03/15/20 20:00 Nasopharnyx Influenza Type B Antigen Screen - Final <Melquiades Nation - Last Filed: 03/15/20 23:44> - Studies Microbiology Data (last 24 hrs): 03/15/20 20:00 Nasopharnyx Influenza Type A Antigen Screen - Final 03/15/20 20:00 Nasopharnyx Influenza Type B Antigen Screen - Final <Mike Hall - Last Filed: 03/16/20 23:00> Assessment and Plan - Plan Impression: Altered mental status: Bacterial pneumonia with a negative Covid Test: Sepsis: Urinary tract infection: Hypotension: Type 2 diabetes mellitus: History of dementia: Essential hypertension: Congestive heart failure with a history of chronic atrial fibrillation, aortic stenosis and CAD: Plan: Altered mental status: Etiology unclear. Likely secondary to sepsis from UTI and pneumonia. Continue gentle IV hydration. Continue IV antibiotics. Continuous telemetry. Monitor. Bacterial pneumonia with a negative Covid Test: Seen on chest x-ray. Continue IV Rocephin and IV azithromycin. Continue O2 support. Monitor vitals. Sepsis: Sepsis protocol started in ED. Patient was given IV fluids in the ER per protocol. Continue gentle IV hydration and IV antibiotics as above. Monitor labs. Urinary tract infection: UA positive for leukocyte esterase and white cell count of 10-20. Continue IV Rocephin. Monitor vitals. Hypotension: Likely secondary to urinary tract infection and pneumonia. Patient tolerated IV fluids well and vitals improved. Monitor vitals. Type 2 diabetes mellitus: Accu-Cheks a.c. HS. Will start on moderate sliding scale insulin. Will resume home medications once verified. Diabetic diet. History of dementia: Baseline unknown. Will monitor. Will resume all medications once verified. Essential hypertension: Will hold off on blood pressure medications for now. Patient was found hypotensive on arrival. Congestive heart failure with a history of chronic atrial fibrillation, aortic stenosis and CAD: Will resume all medications once verified. Will continue gentle IV hydration. Will monitor vitals. Discharge Plan: Care Home Plan to discharge in: Greater than 2 days - Advance Directives Does patient have a Living Will: Yes Does patient have a Durable POA for Healthcare: Yes - Code Status/Comfort Care Code Status Assessed: Yes Time Spent Managing Pts Care (In Minutes): 55 <Melquiades Nation - Last Filed: 03/15/20 23:44> Date of Service: 03/16/20 SUBJECTIVE: PATIENT ADMITTED FOR ALTERED MENTAL STATUS. PATIENT HAD A URINARY TRACT INFECTION AND QUESTIONABLE PNEUMONIA. SHE WAS GIVEN IV FLUIDS AND SHE IS CLINICALLY FEELING A LITTLE BIT BETTER. WE WILL CONTINUE TO MONITOR CLOSELY OBJECTIVE: VITALS: REVIEWED CARDIOVASCULAR EXAM: REGULAR RATE AND RHYTHM NO MURMURS LUNGS: CLEAR BILATERALLY NEURO: PATIENT IS SLIGHTLY CONFUSED BUT ORIENTED TO PERSON AND PLACE BUT NOT TO TIME; MOVES ALL EXTREMITIES ASSESSMENT: 1. TOXIC ENCEPHALOPATHY 2. UTI 3. PNEUMONIA 4. RENAL INSUFFICIENCY PLAN: 1. IV FLUIDS 2. IV ANTIBIOTICS 3. MONITOR NEURO STATUS CLOSELY 4. GI AND DVT PROPHYLAXIS <Mike Hall - Last Filed: 03/16/20 23:00>
[2020-03-15] MEDS ORDERED: FUROSEMIDE 20 MG/ 2ML VIAL ONE (23:43)
[2020-03-16] MEDS: AZITHROMYCIN IV 500 MG in NA CHLORIDE 0.9% 250 ML IVPB SCH ×2 (00:43→21:00)
[2020-03-16] MEDS ORDERED: NA CHLORIDE 0.9% 250 ML ONE ×3 (00:53→23:10)
[2020-03-16] MEDS ORDERED: AZITHROMYCIN 500 MG INJ IVPB ONE ×2 (00:53→23:09)
[2020-03-16] MEDS: INSULIN -REGULAR HUMAN 50 UNIT/0.5 ML ML SQ SCH ×4 (07:54→21:00)
[2020-03-16] MEDS: HEPARIN 5000 UNIT/ML 1 ML VIAL SQ SCH ×2 (07:54→09:00)
[2020-03-16] MEDS: INSULIN GLARGINE 100 UNITS/ML SQ SCH ×2 (09:00→21:00)
[2020-03-16] MEDS ORDERED: SPIRONOLACTONE 25 MG TABLET PO SCH (09:00)
[2020-03-16] MEDS ORDERED: FUROSEMIDE 40 MG TABLET PO SCH (09:00)
[2020-03-16 10:04] LABS: Absolute Lymphocytes (CBC) 1.1 K/uL (0.7-4.9); Basophils % 0.4 % (0-1.3); Hematocrit 32.2 % (36.0-45.0); Lymphocytes % 13.1 % (15.3-44.8)
[2020-03-16] MEDS ORDERED: ASPIRIN EC 81 MG TAB PO ONE (10:39)
[2020-03-16] MEDS ORDERED: FUROSEMIDE 40 MG TABLET ONE (10:39)
[2020-03-16] MEDS ORDERED: NA CHLORIDE 0.9% 1,000 ML ONE (10:40)
[2020-03-16] MEDS ORDERED: levETIRAcetam 500 MG TAB ONE (10:40)
[2020-03-16] MEDS: FUROSEMIDE 40 MG TABLET PO SCH ×2 (10:50→17:17)
[2020-03-16] MEDS: levETIRAcetam 500 MG TAB PO SCH ×2 (10:50→21:11)
[2020-03-16] MEDS: NA CHLORIDE 0.9% 1,000 ML IV SCH ×3 (10:51→23:16)
[2020-03-16] MEDS: ASPIRIN EC 81 MG TAB PO SCH (10:51)
[2020-03-16 18:11] LABS: Magnesium 1.9 mg/dL (1.8-2.4); Potassium 3.4 mmol/L (3.5-5.1)
[2020-03-16] MEDS: CEFTRIAXONE/SWI 1gm 1 GM/10 ML SYR IV SCH (21:11)
[2020-03-16] MEDS: APIXABAN 5 MG TABLET PO SCH (21:11)
--- NOTE | 2020-03-16 23:02 | P.PN ---
Subjective Date of Service: 03/16/20 Subjective: No new changes, No C/O voiced, Improving APPEARS TO BE DOING BETTER. CONTINUE IV ANTIBIOTICS AND IV HYDRATION. Review of Systems 10-point ROS is otherwise unremarkable Physical Examination - Vital Signs Temperature: 98.1 F Blood Pressure: 112/91 Pulse: 86 Respirations: 18 Pulse Ox (%): 90 - Physical Exam General: Alert, In no apparent distress, Oriented x3 Respiratory: Clear to auscultation bilaterally, Normal air movement Cardiovascular: Regular rate/rhythm, Normal S1 S2, No murmurs Gastrointestinal: Normal bowel sounds, Soft and benign, Non-distended, No tenderness Musculoskeletal: No clubbing, No swelling, No tenderness Integumentary: No rashes Neurological: Sensation intact, Cranial nerves 3-12 intact - Studies Microbiology Data (last 24 hrs): 03/15/20 20:00 Nasopharnyx Influenza Type A Antigen Screen - Final 03/15/20 20:00 Nasopharnyx Influenza Type B Antigen Screen - Final Medications List Reviewed: Yes Assessment & Plan - Problems (Diagnosis) (1) Altered mental status Onset Date: 02/18/17 Current Visit: No Status: Acute (2) Atrial fibrillation with rapid ventricular response Onset Date: 08/17/14 Current Visit: No Status: Acute (3) Delirium Current Visit: No Status: Acute (4) CAD (coronary artery disease) Onset Date: 02/01/18 Current Visit: No Status: Chronic Qualifiers: Coronary Disease-Associated Artery/Lesion type: squaxin artery [place] vs. transplanted heart: squaxin heart Associated angina: with stable angina Qualified Code(s): I25.118 - Atherosclerotic heart disease of squ[place]in coronary artery with other forms of angina pectoris (5) CHF (congestive heart failure) Onset Date: 04/24/17 Current Visit: No Status: Chronic Qualifiers: Qualified Code(s): I50.32 - Chronic diastolic (congestive) heart failure (6) Diabetes mellitus Onset Date: 06/08/17 Current Visit: No Status: Chronic Qualifiers: Diabetes mellitus type: type 2 Diabetes mellitus mcfp insulin use: without dedicated intermodal truck driver use Diabetes mellitus complication status: without complication Qualified Code(s): E11.9 - Type 2 diabetes mellitus without complications (7) Hyperlipidemia Onset Date: 02/18/17 Current Visit: No Status: Chronic Qualifiers: Hyperlipidemia type: mixed hyperlipidemia Qualified Code(s): E78.2 - Mixed hyperlipidemia (8) Acute encephalopathy Onset Date: 02/01/18 Current Visit: No Status: Resolved - Plan PLAN: 1. IV FLUIDS 2. IV ANTIBIOTIC THERAPY 3. NEURO STATUS MONITORING 4. MONITOR VOLUME STATUS 5. STRICT BLOOD PRESSURE AND BLOOD SUGAR CONTROL 6. MONITOR CARDIAC STATUS CLOSELY 7. GI AND DVT PROPHYLAXIS Discharge Plan: Home Plan to discharge in: Greater than 2 days - Advance Directives Does patient have a Living Will: Yes Does patient have a Durable POA for Healthcare: Yes Critical Care: No Time Spent Managing PTS Care (In Minutes): 30
[2020-03-17] MEDS: HYDROCODONE/APAP 5/325 MG TAB PO PRN ×2 (00:43→08:38)
--- NOTE | 2020-03-17 05:50 | EKG ---
Test Date: 2020-03-15 Test Time: 19:21:51 Medical Assistant Internal Medicine: MEASUREMENT RESULTS: Intervals: Rate: 59 ID: QRSD: [id number] QT: 484 QTc: 479 Clubb: P: ID: QRS: 5 T: 56 INTERPRETIVE STATEMENTS: Junctional rhythm Low voltage QRS Cannot rule out Anterior infarct, age undetermined Abnormal ECG Compared to ECG 11/23/2019 16:02:55 Junctional rhythm now present Low QRS voltage now present Myocardial infarct finding now present Electronically Signed On 03-17-20 05:45:38 CDT by Andrade Kincaid
[2020-03-17] MEDS: INSULIN -REGULAR HUMAN 50 UNIT/0.5 ML ML SQ SCH ×4 (07:30→20:34)
[2020-03-17] MEDS: INSULIN GLARGINE 100 UNITS/ML SQ SCH (08:35)
[2020-03-17] MEDS: ASPIRIN EC 81 MG TAB PO SCH (08:36)
[2020-03-17] MEDS: levETIRAcetam 500 MG TAB PO SCH ×2 (08:36→20:33)
[2020-03-17] MEDS: FUROSEMIDE 40 MG TABLET PO SCH ×2 (08:36→17:24)
--- NOTE | 2020-03-17 11:56 | P.PN ---
Subjective Date of Service: 03/17/20 Primary Care Provider: half-way Chief Complaint: Sepsis/UTI/pneumonia Subjective: Improving, Doing well Physical Examination - Vital Signs Temperature: 97.9 F Blood Pressure: 100/56 Pulse: 69 Respirations: 18 Pulse Ox (%): 93 - Physical Exam General: Alert, Cooperative, Demented HEENT: Atraumatic Neck: Supple Respiratory: Clear to auscultation bilaterally, Normal air movement Cardiovascular: Normal pulses, Regular rate/rhythm Gastrointestinal: Normal bowel sounds, No rebound, No guarding Neurological: Normal speech, Normal strength at 5/5 x4 extr, Normal tone, Normal affect - Studies Medications List Reviewed: Yes Assessment & Plan Discharge Plan: Assisted Plan to discharge in: 48 Hours Physician Review Additional Text: Impression: Altered mental status secondary to toxic encephalopathy with sepsis related to UTI, possible numb and bacteremia, urine and blood culture positive for Gram-neg ative rods Atrial fibrillation with RVR on chronic anti coalition therapy Chronic diastolic CHF CAD Diabetes mellitus type 2 insulin-dependent Hyperlipidemia Seizure disorder Chronic pain Plan: Altered mental status secondary to toxic encephalopathy with sepsis related to UTI, possible pneumonia and bacteremia, urine and blood culture positive for Gram-negative rods: Continue current antibiotic therapy. continue IV fluids. Will make adjustments. Await urine and blood culture results. Patient appears to be back to her baseline mentation. Room-air saturations within normal range. Will check chest x-ray to rule out pneumonia. Suspect chronic diastolic CHF. Will adjust antibiotic therapy once culture results have been obtained. Will need to obtain and verify home medications. Will have physical therapy assess ambulation. Patient reports that she is wheelchair bound. May return to alf likely in the next 48 hr. Spoke with son with current findings. Atrial fibrillation with RVR on chronic anti coagulation therapy: Will need to verify home medication. This includes Eliquis and sotalol. Will restart sotalol but at a reduced dose due to low blood pressure. Patient takes Eliquis 5 mg at bedtime. Will discuss with cardiology. Chronic diastolic CHF: Recheck chest x-ray. Continue Lasix. Will try to wean off IV fluids. CAD: Continue home medication Diabetes mellitus type 2 insulin-dependent: Will adjust basal insulin. Sliding scale in place. Seizure disorder: Need to verify and restart home medication Chronic pain: May need to provide medication for pain. Patient reports that she is bed-bound and uses walker. Time Spent Managing Pts Care (In Minutes): 55
--- NOTE | 2020-03-17 12:55 | RAD REPORT ---
EXAM DESCRIPTION: RAD - Chest Single View - 03/17/2020 12:33 pm CLINICAL HISTORY: Follow up pneumonia vs Chronic CHF COMPARISON: Portable March 15, CT chest March 2019, portable chest January 2018 TECHNIQUE: AP portable chest image was obtained 03/17/2020 12:33 pm . FINDINGS: Lung volumes have improved. No new mass or consolidation. Interstitial markings remain pro minent. Pattern is slightly above baseline in the patient. Heart size normal. Dense cardiac calcifica tion has not changed. Trachea is midline. No measurable pleural effusion and no pneumothorax. No acut e bony abnormality seen. No acute aortic findings suspected. IMPRESSION: Interstitial edema or infiltrate pattern is present but improved. No new or progressive finding.
[2020-03-17] MEDS: NACHLORIDE 0.45% 1,000 ML IV SCH (12:57)
[2020-03-17] MEDS: DIVALPROEX NA 125 MG CAP PO SCH (20:32)
[2020-03-17] MEDS: MELATONIN 3 MG TABLET PO SCH (20:32)
[2020-03-17] MEDS: MAGNESIUM OXIDE 400 MG TAB PO SCH (20:33)
[2020-03-17] MEDS: CEFTRIAXONE/SWI 1gm 1 GM/10 ML SYR IV SCH (20:33)
[2020-03-17] MEDS: APIXABAN 5 MG TABLET PO SCH (20:33)
[2020-03-17] MEDS: QUETIAPINE 25 MG TAB PO SCH (20:33)
[2020-03-17] MEDS: SOTALOL HCL 80 MG TAB PO SCH (20:33)
[2020-03-17] MEDS ORDERED: SOTALOL HCL 80 MG TAB PO SCH ×2 (21:00)
[2020-03-17] MEDS ORDERED: INSULIN GLARGINE 100 UNITS/ML SQ SCH (21:00)
[2020-03-18] MEDS: HYDROCODONE/APAP 5/325 MG TAB PO PRN ×3 (01:49→18:49)
[2020-03-18] MEDS: NACHLORIDE 0.45% 1,000 ML IV SCH (01:50)
[2020-03-18 02:22] VITALS: BMI 32.9
[2020-03-18 06:38] LABS: Absolute Lymphocytes (CBC) 1.4 K/uL (0.7-4.9); Basophils % 0.3 % (0-1.3); Hematocrit 29.5 % (36.0-45.0); Lymphocytes % 20.2 % (15.3-44.8); MPV 8.5 fL (7.6-11.3); RBC Red Blood Cell Count 3.59 M/uL (3.86-4.86)
[2020-03-18 07:03] LABS: BUN Blood Urea Nitrogen 8 mg/dL (7-18); Bicarbonate 27 mmol/L (21-32); Glucose Level 103 mg/dL (74-106); Magnesium 1.8 mg/dL (1.8-2.4); Sodium Level 137 mmol/L (136-145)
[2020-03-18 07:20] LABS: Potassium 2.6 mmol/L (3.5-5.1)
[2020-03-18] MEDS: INSULIN -REGULAR HUMAN 50 UNIT/0.5 ML ML SQ SCH ×4 (07:30→20:56)
--- NOTE | 2020-03-18 07:57 | P.PN ---
Subjective Date of Service: 03/18/20 Primary Care Provider: group home Chief Complaint: Sepsis/UTI/pneumonia Subjective: Doing well, Demented, Other (Nurses report that patient has poor oral intake. Patient also fell last night.) Physical Examination - Vital Signs Temperature: 98.4 F Blood Pressure: 117/60 Pulse: 85 Respirations: 20 Pulse Ox (%): 93 - Physical Exam General: Alert, Cooperative, Demented HEENT: Atraumatic Neck: Supple Respiratory: Clear to auscultation bilaterally, Normal air movement Cardiovascular: Irregular heart rate/rhythm (AFib rate controlled) Gastrointestinal: Normal bowel sounds Neurological: Normal speech, Normal strength at 5/5 x4 extr, Normal tone, Dementia - Studies Microbiology Data (last 24 hrs): 03/15/20 19:50 Blood - Blood Aerobic Blood Culture - Final Escherichia Coli Esbl 03/15/20 19:50 Blood - Blood Blood Culture Gram Stain - Final 03/15/20 19:50 Blood - Blood Anaerobic Blood Culture - Final Escherichia Coli Esbl 03/15/20 19:50 Blood - Blood Gram Stain - Final Medications List Reviewed: Yes Assessment & Plan Discharge Plan: Long Term Plan to discharge in: 24 Hours Physician Review Additional Text: Impression: Altered mental status secondary to toxic encephalopathy with sepsis related to UTI/bacteremia, urine/blood culture positive for E coli-ESBL Atrial fibrillation with RVR on chronic anti coalition therapy Chronic diastolic CHF CAD Diabetes mellitus type 2 insulin-dependent Hyperlipidemia Seizure disorder Chronic pain Dementia likely vascular: Overall stable. Plan: Altered mental status secondary to toxic encephalopathy with sepsis related to UTI/bacteremia, urine/blood culture positive for E coli-ESBL: Will discontinue Rocephin. Will change to IV meropenem 1000 mg IV twice daily. Patient will need 2 weeks of IV antibiotic therapy. Discontinue IV fluids. Potassium to be replaced. Will decrease Lasix. Social work to help in process of arranging for IV antibiotic therapy at the long-term prior to discharge. PICC line has been ordered. Patient appears to be well. Encourage oral intake. Fall precautions in place. Medications have been adjusted. Anticipate discharge back to the long-term with IV antibiotic therapy as early as tomorrow. Will discuss with son. Atrial fibrillation with RVR on chronic anti coagulation therapy: Will continue with current doses of sotalol and Eliquis. Will discuss further with cardiology. Chronic diastolic CHF: Will decrease Lasix to 40 mg daily. Discontinue IV fluids. Potassium to be replaced. CAD: Continue home medication Diabetes mellitus type 2 insulin-dependent: Discontinue basal insulin due to poor oral intake. Continue sliding scale. Will check A1c.. Seizure disorder: Continue with her current medications Chronic pain: Will provide medication as needed. Fall precautions in place. Dementia, likely vascular: Overall stable. Time Spent Managing Pts Care (In Minutes): 55
[2020-03-18] MEDS ORDERED: MAGNESIUM SULFATE 1 gm IVPB 1 GM/100 ML BAG IV ONE (08:00)
[2020-03-18] MEDS: DIVALPROEX NA 125 MG CAP PO SCH ×2 (08:13→20:55)
[2020-03-18] MEDS: PANTOPRAZOLE 40MG TABLET PO SCH (08:13)
[2020-03-18] MEDS: SOTALOL HCL 80 MG TAB PO SCH ×2 (08:13→20:55)
[2020-03-18] MEDS: MAGNESIUM OXIDE 400 MG TAB PO SCH ×2 (08:13→20:55)
[2020-03-18] MEDS: ASPIRIN EC 81 MG TAB PO SCH (08:14)
[2020-03-18] MEDS: KCL 20 MEQ/100 mL IVPB 20 MEQ/100 ML BAG IV SCH ×3 (08:15→13:36)
[2020-03-18] MEDS: levETIRAcetam 500 MG TAB PO SCH ×2 (08:16→20:55)
[2020-03-18] MEDS ORDERED: HOME MED 1 EA UNK (Omeprazole [Omeprazole] 20 MG) PO SCH (09:00)
[2020-03-18] MEDS ORDERED: Meropenem 1000 MG/VIAL IV SCH (09:00)
[2020-03-18] MEDS: Meropenem 1,000 MG in NA CHLORIDE 0.9% 100 ML IV SCH ×2 (10:13→16:27)
[2020-03-18] MEDS: FUROSEMIDE 40 MG TABLET PO SCH (10:13)
[2020-03-18] MEDS: APIXABAN 5 MG TABLET PO SCH (20:55)
[2020-03-18] MEDS: QUETIAPINE 25 MG TAB PO SCH (20:55)
[2020-03-18] MEDS: MELATONIN 3 MG TABLET PO SCH (20:55)
[2020-03-19] MEDS: Meropenem 1,000 MG in NA CHLORIDE 0.9% 100 ML IV SCH ×2 (00:35→08:00)
[2020-03-19 05:46] LABS: Hematocrit 29.3 % (36.0-45.0); RBC Red Blood Cell Count 3.54 M/uL (3.86-4.86)
[2020-03-19 05:47] LABS: Basophils % 0.4 % (0-1.3); Lymphocytes % 14.3 % (15.3-44.8); MPV 8.4 fL (7.6-11.3)
[2020-03-19 05:48] LABS: BUN Blood Urea Nitrogen 8 mg/dL (7-18); Bicarbonate 29 mmol/L (21-32); Glucose Level 118 mg/dL (74-106); Magnesium 2.2 mg/dL (1.8-2.4); Potassium 3.3 mmol/L (3.5-5.1); Sodium Level 140 mmol/L (136-145)
[2020-03-19] MEDS: INSULIN -REGULAR HUMAN 50 UNIT/0.5 ML ML SQ SCH ×2 (07:30→11:06)
[2020-03-19] MEDS: PANTOPRAZOLE 40MG TABLET PO SCH (08:00)
[2020-03-19] MEDS: FUROSEMIDE 40 MG TABLET PO SCH (08:41)
[2020-03-19] MEDS: MAGNESIUM OXIDE 400 MG TAB PO SCH (08:42)
[2020-03-19] MEDS: DIVALPROEX NA 125 MG CAP PO SCH (08:42)
[2020-03-19] MEDS: ASPIRIN EC 81 MG TAB PO SCH (08:42)
[2020-03-19] MEDS: levETIRAcetam 500 MG TAB PO SCH (08:42)
[2020-03-19] MEDS: SOTALOL HCL 80 MG TAB PO SCH (08:43)
[2020-03-19] MEDS ORDERED: POTASSIUM 25 MEQ EFFERV TAB PO ONE ×2 (09:00)
--- NOTE | 2020-03-19 11:37 | RAD REPORT ---
EXAM DESCRIPTION: RAD - Chest Single View - 03/19/2020 3:43 am CLINICAL HISTORY: PICC placement TECHNIQUE: Single frontal view of the chest is submitted. COMPARISON: None available for comparison FINDINGS: Heart: The cardiothoracic silhouette is enlarged, in part accentuated by portable techniqu e. Lungs: Central pulmonary vascular and interstitial prominence and patchy bilateral perihilar opacitie s. Mediastinum: Thoracic aortic atherosclerosis. Pleura: No appreciable effusion. No pneumothorax. Bones: Multilevel spondylosis. No acute fracture. Upper abdomen: Unremarkable Other: Right upper extremity PICC tip projects over the proximal to mid superior vena cava. IMPRESSION: 1. Right upper extremity PICC tip projects over the proximal to mid superior vena cava . 2. Findings which may be related to pulmonary congestion. Superimposed infection not excluded. Electronically signed by: Ghazala Simon MD 03/19/2020 3:51 AM CDT Due to temporary technical issues with the PACS/Fluency reporting system, reports are being signed by the in house radiologist without review as a courtesy to ensure prompt reporting. The interpreting r adiologist is fully responsible for the content of the report.
--- NOTE | 2020-03-19 12:59 | P.DS ---
Admission Date: 03/15/20 Discharge Date: 03/19/20 Primary Care Provider: shelter Disposition: TRANSFER TO ASSISTED Discharge Condition: GOOD Reason for Admission: Sepsis/UTI/pneumonia Consultations: None Procedures: CT Scan: FINDINGS: No intracranial hemorrhage, hydrocephalus or extra-axial fluid collection.Moderate generalized brain atrophy is present with moderate periventricular and deep white matter chronic microvascular ischemic changes.No areas of brain edema or evidence of midline shift. The paranasal sinuses and mastoids are clear. The calvarium is intact. Heavy vertebral atherosclerosis. IMPRESSION: No acute intracranial abnormality. Medical problem list: Altered mental status secondary to toxic encephalopathy with sepsis related to UTI/bacteremia, urine/blood culture positive for E coli-ESBL Atrial fibrillation with RVR on chronic anti coalition therapy Chronic diastolic CHF CAD Diabetes mellitus type 2 Hyperlipidemia Seizure disorder Chronic pain Dementia likely vascular Brief History of Present Illness: 84-year-old female with multiple medical problems presented to the emergency room with for mental status. Patient found to have UTI with possible sepsis. Patient admitted for further evaluation and treatment. Hospital Course: Patient presented with altered mental status secondary to toxic encephalopathy with severe sepsis related to UTI/bacteremia. Urine and blood cultures were found to be positive for E coli-ESBL. Patient was transition to IV meropenem. Her sepsis has resolved. Patient appears to be at her baseline level. PICC line was placed. Arrangements for continued antibiotic therapy for a total of 2 weeks has been arranged at the halfway. At discharge patient will continue with IV meropenem 1000 mg twice daily for total of 2 weeks. Recommend to recheck blood cultures and urine cultures in 1 week. If negative PICC line and antibiotic therapy can be discontinued at 2 weeks. Recommend follow up with halfway physician to continue to monitor care. Case discussed with son who has agreed with plan of care. Patient with atrial fibrillation with RVR on chronic anti coagulation therapy. Her dose of sotalol was decreased initially during the course of her stay. This was increased to her normal dose at discharge. At discharge she will continue with sotalol 160 mg 1 pill twice daily and Eliquis 5 mg at bedtime. Patient with chronic diastolic CHF. At discharge patient will continue with Lasix 40 mg 1 pill twice daily and Aldactone 25 mg 1 pill twice daily. Patient will continue with oxygen to maintain sats above 93%. Patient will continue with a 1500 cc per day fluid restriction and low-salt diet. Recommend to monitor her weight daily. If her weight increases by more than 5 lb she is to contact cardiology for further recommendation. Recommend to recheck lab-BMP in 1 week to monitor her progress. Patient may require potassium supplementation in the future if potassium is decreased. Patient with CAD. At discharge patient will continue with her medication aspirin 81 mg daily and magnesium 500 mg 1 pill twice daily. Patient with diabetes mellitus type 2 insulin dependent. Patient previously on Lantus 40 units subcu daily and metformin. Due to her poor appetite Lantus was discontinued. Blood sugar now stable. A1c pending at discharge. At discharge patient may continue with Glucophage 500 mg 1 pill twice daily. Recommend to monitor blood sugar closely. Recommend to maintain blood sugar less than 140 fasting and less than 200 after meals. Please note Lantus will be discontinued. If blood sugars continued to remain elevated this can be restarted by halfway physician. Further adjustment can be done by halfway physician. Patient with seizure disorder. At discharge she will continue with her current medications Keppra 500 mg 1 pill twice daily. And Depakote 250 mg 1 pill twice daily. Patient also takes Seroquel 25 mg at bedtime. Patient with chronic pain. At discharge she may continue with her medication continue with hydrocodone as directed.. Patient likely with underlying vascular dementia. This has remained stable. This can be further monitored and addressed by halfway Vital Signs/Physical Exam: Temp Pulse Resp BP Pulse Ox 98.6 F 105 H 18 138/79 94 03/19/20 08:00 03/19/20 08:00 03/19/20 08:00 03/19/20 08:00 03/19/20 08:00 General: Alert, Demented HEENT: Atraumatic Neck: Supple Respiratory: Clear to auscultation bilaterally Cardiovascular: Irregular heart rate/rhythm (AFib rate controlled) Gastrointestinal: Normal bowel sounds, Soft and benign, Non-distended Neurological: Normal speech, Normal strength at 5/5 x4 extr, Normal tone, Dementia Laboratory Data at Discharge: WBC 6.9 K/uL (4.3-10.9) 03/19/20 05:10 Hgb 9.6 g/dL (12.0-15.0) L 03/19/20 05:10 Hct 29.3 % (36.0-45.0) L 03/19/20 05:10 Plt Count 187 K/uL (152-406) 03/19/20 05:10 PT 18.0 SECONDS (9.5-12.5) H 03/15/20 19:50 INR 1.54 03/15/20 19:50 APTT 35.4 SECONDS (24.3-36.9) 03/15/20 19:50 Sodium 140 mmol/L (136-145) 03/19/20 05:10 Potassium 3.3 mmol/L (3.5-5.1) L 03/19/20 05:10 BUN 8 mg/dL (7-18) 03/19/20 05:10 Creatinine 0.62 mg/dL (0.55-1.3) 03/19/20 05:10 Glucose 118 mg/dL (74-106) H 03/19/20 05:10 Magnesium 2.2 mg/dL (1.8-2.4) 03/19/20 05:10 Total Bilirubin 0.7 mg/dL (0.2-1.0) 03/15/20 19:50 AST 18 U/L (15-37) 03/15/20 19:50 ALT 10 U/L (12-78) L 03/15/20 19:50 Alkaline Phosphatase 84 U/L (45-117) 03/15/20 19:50 Amylase 93 U/L (25-115) 03/15/20 19:50 Lipase 30 U/L (73-393) L 03/15/20 19:50 Home Medications: Acetaminophen [Tylenol*] 650 mg PO Q6HP PRN 03/16/20 Apixaban [Eliquis *] 5 mg PO BEDTIME 03/16/20 Aspirin Chewable [Aspirin Chewable*] 81 mg PO DAILY 03/16/20 Cetirizine HCl [Zyrtec] 10 mg PO DAILY 03/16/20 Divalproex [Depakote Sprinkle] 250 mg PO BID 03/16/20 Furosemide [Lasix*] 40 mg PO BID 03/16/20 Hydrocodone Bit/Acetaminophen [Hydrocodon-Acetaminophn 10-325] 1 tab PO TIDP PRN 03/16/20 Insulin Glargine Human [Lantus*] 40 units SQ DAILY 03/16/20 Magnesium Oxide [Mag 0X*] 400 mg PO BID 03/16/20 Melatonin [Melatonin*] 6 mg PO BEDTIME 03/16/20 Metformin HCl [Glucophage*] 500 mg PO BIDWM 03/16/20 Omeprazole 20 mg PO DAILY 03/16/20 Polyethylene Glycol 3350 [Miralax] 17 gm PO DAILY PRN 03/16/20 Quetiapine [Seroquel*] 25 mg PO BEDTIME 03/16/20 Sotalol HCl [Betapace*] 160 mg PO BID 03/16/20 Spironolactone [Aldactone*] 25 mg PO BID 03/16/20 levETIRAcetam [Keppra*] 500 mg PO BID 03/16/20 Patient Discharge Instructions: 1. Patient to return to halfway with IV antibiotic therapy. 2. Patient presented with altered mental status secondary to toxic encephalopathy with severe sepsis related to UTI/bacteremia. Urine and blood cultures were found to be positive for E coli-ESBL. Patient was transition to IV meropenem. Her sepsis has resolved. Patient appears to be at her baseline level. PICC line was placed. Arrangements for continued antibiotic therapy for a total of 2 weeks has been arranged at the halfway. At discharge patient will continue with IV meropenem 1000 mg twice daily for total of 2 weeks. Recommend to recheck blood cultures and urine cultures in 1 week. If negative PICC line and antibiotic therapy can be discontinued at 2 weeks. Recommend follow up with halfway physician to continue to monitor care. Case discussed with son who has agreed with plan of care. 3. Patient with atrial fibrillation with RVR on chronic anti coagulation therapy. Her dose of sotalol was decreased initially during the course of her stay. This was increased to her normal dose at discharge. At discharge she will continue with sotalol 160 mg 1 pill twice daily and Eliquis 5 mg at bedtime. 4. Patient with chronic diastolic CHF. At discharge patient will continue with Lasix 40 mg 1 pill twice daily and Aldactone 25 mg 1 pill twice daily. Patient will continue with oxygen to maintain sats above 93%. Patient will continue with a 1500 cc per day fluid restriction and low-salt diet. Recommend to monitor her weight daily. If her weight increases by more than 5 lb she is to contact cardiology for further recommendation. Recommend to recheck lab-BMP in 1 week to monitor her progress. Patient may require potassium supplementation in the future if potassium is decreased. 5. Patient with CAD. At discharge patient will continue with her medication aspirin 81 mg daily and magnesium 500 mg 1 pill twice daily. 6. Patient with diabetes mellitus type 2 insulin dependent. Patient previously on Lantus 40 units subcu daily and metformin. Due to her poor appetite Lantus was discontinued. Blood sugar now stable. A1c pending at discharge. At discharge patient may continue with Glucophage 500 mg 1 pill twice daily. Recommend to monitor blood sugar closely. Recommend to maintain blood sugar less than 140 fasting and less than 200 after meals. Please note Lantus will be discontinued. If blood sugars continued to remain elevated this can be restarted by halfway physician. Further adjustment can be done by halfway physician. 7. Patient with seizure disorder. At discharge she will continue with her current medications Keppra 500 mg 1 pill twice daily. And Depakote 250 mg 1 pill twice daily. Patient also takes Seroquel 25 mg at bedtime. 8. Patient with chronic pain. At discharge she may continue with her medication continue with hydrocodone as directed.. 9. Patient likely with underlying vascular dementia. This has remained stable. This can be further monitored and addressed by halfway Diet: ADA Activity: Fall precautions Time spent managing pt's care (in minutes): 55
[2020-03-19 13:17] VITALS: O2SAT 93
[2020-03-19 13:27] VITALS: BP 131/75; TEMP 98.7
[2020-03-19] MEDS ORDERED: GLUCERNA SHAKE 237 ML CAN PO SCH (21:00)
[2020-03-19] MEDS ORDERED: SOTALOL HCL 80 MG TAB PO SCH (21:00)
== END 2020-03-19 16:03 | DRG 871 ==
LOC: ER 19:13 → ERHOLD 23:32 → 2ND 03-16 16:28
PROVIDERS: ADMIT Hospitalist; ATTEND Family Medicine
PROC: 02HV33Z Insertion of Infusion Device into Superior Vena Cava, Percutaneous Approach (ICD-10-PCS; principal; 2020-03-19)
DX: A41.9 Sepsis, unspecified organism (principal); G92 Toxic encephalopathy; N39.0 Urinary tract infection, site not specified; I50.32 Chronic diastolic (congestive) heart failure; Z16.12 Extended spectrum beta lactamase (ESBL) resistance; R65.20 Severe sepsis without septic shock; E11.9 Type 2 diabetes mellitus without complications; I11.0 Hypertensive heart disease with heart failure; I35.0 Nonrheumatic aortic (valve) stenosis; N28.9 Disorder of kidney and ureter, unspecified; I25.118 Atherosclerotic heart disease of native coronary artery with other forms of angina pectoris; E78.2 Mixed hyperlipidemia; I48.91 Unspecified atrial fibrillation; J44.9 Chronic obstructive pulmonary disease, unspecified; G89.29 Other chronic pain; B96.20 Unspecified Escherichia coli [E. coli] as the cause of diseases classified elsewhere; R41.0 Disorientation, unspecified; F01.50 Vascular dementia, unspecified severity, without behavioral disturbance, psychotic disturbance, mood disturbance, and anxiety; Z90.49 Acquired absence of other specified parts of digestive tract; Z88.1 Allergy status to other antibiotic agents; Z90.710 Acquired absence of both cervix and uterus; Z79.82 Long term (current) use of aspirin; Z79.4 Long term (current) use of insulin; Z91.09 Other allergy status, other than to drugs and biological substances; Z79.01 Long term (current) use of anticoagulants; Z79.891 Long term (current) use of opiate analgesic; Z79.899 Other long term (current) drug therapy; Z91.018 Allergy to other foods; Z88.8 Allergy status to other drugs, medicaments and biological substances; Z20.828 Contact with and (suspected) exposure to other viral communicable diseases
CPT/HCPCS: 36415; 36569; 51702; 70450; 71045; 80048; 80076; 80164; 81003; 81015; 82150; 82550; 82553; 82947; 83036; 83605; 83690; 83735; 83880; 84132; 84145; 84484; 85025; 85610; 85730; 86850; 86900; 86901; 87040; 87077; 87086; 87088; 87186; 87205; 87804; 93005; 94760; 97161; 97530; 99285; J0456; J0696; J1940; J2185; J3475; J3480; J7030; J7050; U0003

== ENCOUNTER 2020-03-19 21:01 | Emergency (ER) | payer OTHER ==
--- OUTSIDE RECORDS SUMMARY | 2020-03-19 21:03 | XMS REPORT | Continuity of Care Document ---
:1935 Author Organization [facility] t Address [address] [place] [address] Care Team Providers Name Role Phone Unavailable Unavailable Unavailable Payers Payer Name Policy Type Policy Number Effective Date Expiration Date S ource Problems This patient has no known problems. Allergies, Adverse Reactions, Alerts Allergy Allergy Status Severity Reaction(s) Onset Inactive Treating Comm ents Source Name Type Date Date Clinician lorazepa DA Active MO 2017-0 [facility] m 9[facility]10 [facility] .VINEGAR DA Active U [facility] 3-07 [facility] EGGPLANT DA Active U 2006- [facility] 3-07 [facility] SULFA DA Active U [facility] DRUGS 3-07 [facility]:00[facility] e [facility] Medications This [...] CA) 8.6 mg/dL 8.5-10.1 N BASIC METABOLIC [id number] 03:29:00 Test Item Value Reference Range Interpretation [...] code = CA) mg/dL 8.5-10.1 CBC W/AUTO [id number] 03:23:00 Test Item Value Reference Range Interpretation [...] MDIFF) - XR HIP W/PEL UNI 2+V [id number] 03:19:00 FAX: Wes Castro MD [phone] [place]: B St: REG Name: OMAIRA MORRIS [facility] : 1935 Age/S: 84/F [address] Unit#: [id number] Loc: [place] [address] Phys: Wes Castro MD Acct: [id number] Dis Date: Status: REG ER PHONE #: [phone] Exam Date: 12/05/2019 0255 FAX #: [phone] Reason: fall EXAMS: CPT CODE: [id number] XR HIP W/PEL UNI 2+[place] [id number] R16 EXAM: - XR FEMUR MIN 2 [...] Technologist: CINDY SUTHERLAND, RT(R) Trnscrd Date/Time/By: 12/05/2019 (4919) : By: [email or web address] Orig Print D/T: S: 12/05/2019 (3380) PAGE 1 Signed Report- XR FEMUR MIN 2 VWS [id number] 03:19:00 FAX: Wes Castro MD [phone] [place]: B St: REG Name: OMAIRA MORRIS [facility] : 1935 Age/S: 84/F [address] Unit#: [id number] Loc: [place] [address] Phys: Wes Castro MD Acct: [id number] Dis Date: Status: REG ER PHONE #: [phone] Exam Date: 12/05/2019 0305 FAX #: [phone] Reason: fall EXAMS: CPT CODE: [id number] XR FEMUR MIN [address] [place] [id number] R16 EXAM: - XR FEMUR MIN 2 [...] RT(R) Trnscrd Date/Time/By: 12/05/2019 (0319) : By: [email or web address] Orig Print D/T: S: 12/05/2019 (0322) PAGE 1 Signed ReportCBC W/AUTO [id number] 03:16:00 Test Item Value Reference Range Interpretation [...]
[2020-03-19] MEDS ORDERED: NA CHLORIDE 0.9% 1,000 ML ONE (21:24)
[2020-03-19 21:28] LABS: Arterial Blood Carboxyhemoglob 2.8 % (0-1.5); Blood Gas Oxyhemoglobin 91.9 % (94-97); Blood O2 Saturation 95.1 % (92-98.5)
[2020-03-19 21:31] LABS: Urine Bacteria <20 /HPF (<20); Urine Culture Reflex Order NOT NEEDED; Urine Mucus 1+ /HPF (NONE SEEN)
[2020-03-19 21:31] LABS: Urine Blood 2+ (NEG); Urine Glucose NEGATIVE (NEG); Urine Protein NEGATIVE (NEG); Urine Specific Gravity 1.015 (1.005-1.030)
[2020-03-19 21:39] LABS: Absolute Lymphocytes (CBC) 1.3 K/uL (0.7-4.9); Basophils % 0.5 % (0-1.3); Hematocrit 33.2 % (36.0-45.0); Lymphocytes % 15.1 % (15.3-44.8); MPV 8.1 fL (7.6-11.3); RBC Red Blood Cell Count 4.04 M/uL (3.86-4.86)
[2020-03-19 21:47] LABS: Potassium 3.3 mmol/L (3.5-5.1)
[2020-03-19] MEDS ORDERED: ONDANSETRON 4 MG/2 ML VIAL ONE (22:17)
[2020-03-19] MEDS ORDERED: MORPHINE 4 MG/ML SYR ONE (22:17)
[2020-03-20] MEDS ORDERED: KCL 20 MEQ/100 mL IVPB 20 MEQ/100 ML BAG IV ONE (00:26)
[2020-03-20] MEDS ORDERED: IPRATROPIUM BROM 0.5MG/2.5ML ONE (05:55)
[2020-03-20] MEDS ORDERED: ALBUTEROL 2.5 MG/3 ML NEB SOL ONE (05:55)
--- NOTE | 2020-03-20 06:06 | ER ---
Nurse's Notes [facility] Name: Kayla Marie Age: 84 yrs Sex: Female : 1935 Arrival Date: 03/19/2020 Time: 20:46 Bed 6 Private MD: Diagnosis: Altered mental status ( Improved ) Pneumonia Presentation: 03/19 20:46 Note Corinna Nurse at [facility] reports the [facility] for treatment of UTI, this pt is now combative and removing things from the fiore in her room and throwing them, as well as breaking two phones. 20:54 Note [facility] state that the patient has been cooperative for them in route to facility. When asked [facility] staff why EMS was called, they reported that the patient would not stay in her room, and that they witheld her IV abx due to the patient no staying in her room. 20:55 Chief complaint: EMS states: [facility] staff reported the patient to be sg uncooperative and confused, pt a\\T\\ox1 at halfway staff state that the patient is normally a\\T\\ox2 but only knows her name as her baseline... pt was receiving IV abx in hospital through PICC to [facility], but due to patient not staying in her room they witheld her dose of abx today. Coronavirus screen: At this time, the client does not indicate any symptoms associated with coronavirus-19. The client reports previous COVID testing was negative. Date of collection: March 15, 2020. Ebola Screen: Patient negative for fever greater than or equal to 101.5 degrees Fahrenheit, and additional compatible Ebola Virus Disease symptoms Patient denies exposure to infectious person. Patient denies travel to an Ebola-affected area in the 21 days before illness onset. No symptoms or risks identified at this time. Initial Sepsis Screen: Does the patient meet any 2 criteria? Altered Mental Status. Does the patient have a suspected source of infection? Yes: Dysuria/Frequency/Urgency/UTI. Risk Assessment: Do you want to hurt yourself or someone else? Patient reports no desire to harm self or others. Onset of symptoms was March 15, 2020. Care prior to arrival: Glucose check: 177 Oxygen administered. via nasal cannula. Transition of care: patient was not received from another setting of care. 20:55 Acuity: REGINA 3 sg 20:55 Method Of Arrival: EMS: [facility] sg Historical: - Allergies: 21:02 Sulfa (Sulfonamide Antibiotics); mg2 21:02 eggplant; mg2 21:02 Lorazepam; mg2 21:02 vinegar; mg2 - Home Meds: 21:02 aspirin 81 mg Oral chew 1 tab once daily [Active]; mg2 23:32 acetaminophen 325 mg Oral tab 2 tabs every 6 hours [Active]; apixaban 5 mg Oral 1 tab Q mg2 EVENING [Active]; aspirin 81 mg Oral TbEC 1 tab once daily [Active]; Bentyl 20 mg Oral tab 1 tab 3 times per day [Active]; cetirizine 10 mg Oral tab 1 tab once daily [Active]; Depakote Sprinkles 125 mg Oral cpSP 2 caps 2 times per day [Active]; hydrocodone-acetaminophen 10-325 mg Oral tab 1 tab three times a day [Active]; furosemide 40 mg Oral tab [Active]; insulin detemir 18 units subcutaneous twice a day [Active]; Keppra 500 mg Oral tab 1 tab 2 times per day [Active]; Lantus 100 unit/mL Sub-Q soln [Active]; magnesium oxide 400 mg Oral tab daily [Active]; melatonin 3 mg Oral tab [Active]; metformin 500 mg Oral tab 2 times per day [Active]; Omeprazole Oral [Active]; polyethylene glycol 8000(bulk) miscellaneous powd daily [Active]; quetiapine 25 mg Oral tab 1 tab [Active]; sotalol 160 mg Oral tab 1 tab 2 times per day [Active]; spironolactone 25 mg Oral tab 1 tab 2 times per day [Active]; - PMHx: 21:02 uti; shingles; copd; SLE; Diabetes - IDDM; heart failure; Anxiety; mg2 23:32 Seizures; macular degeneration; Nerve stimulator; Osteoporosis; right hip fx; Dementia; mg2 CHF; CAD; Atrial Fib; Aortic Stenosis; Hypertension; Lupus; legally blind; - Immunization history:: Flu vaccine status is unknown. - Social history:: Smoking status: unknown. Screenin:59 Abuse screen: Denies threats or abuse. Denies injuries from another. Nutritional mg2 screening: No deficits noted. Tuberculosis screening: No symptoms or risk factors identified. Fall Risk IV access (20 points). Assessment: 20:58 General: Appears in no apparent distress. comfortable, Behavior is calm, cooperative. mg2 Pain: Complains of pain in back. Pain: Quality of pain is described as she has shingles at the back. Neuro: Level of Consciousness is awake, obeys commands, confused, Oriented to person. Cardiovascular: Capillary refill < 3 seconds Patient's skin is warm and dry. Respiratory: Airway is patent Respiratory effort is even, unlabored, Respiratory pattern is regular, symmetrical. GI: No signs and/or symptoms were reported involving the gastrointestinal system. : history of recent admission for UTI. EENT: No signs and/or symptoms were reported regarding the EENT system. Derm: Wound noted back. Musculoskeletal: Circulation, motion, and sensation intact. Capillary refill < 3 seconds. 21:20 Reassessment: Patient appears in no apparent distress at this time. pt cooperative at this time with medical treatment, pt having peripheral blood draw with ER staff, appears calm and relaxed, nursing staff will continue to monitor. 22:12 Reassessment: Patient appears in no apparent distress at this time. awaiting for rr5 results. 23:19 Reassessment: patient sleeping. mg2 23:39 Reassessment: Clinical data for patient has been sent for evaluation by [facility] staff, sg awaiting decision if pt will be accepted back to [facility] facility at this time. 03/20 00:40 Reassessment: Patient appears in no apparent distress at this time. vitally stable. rr5 02:06 Reassessment: Patient appears in no apparent distress at this time. patient sleeping. mg2 02:32 Reassessment: lab reports unable to locate COVID swab, requests new specimen. pt agrees sg to be swabbed, a COVID 19 swab has been walked to the lab by RN. 03:19 Reassessment: awaiting a call back from [facility] primary RN or Campus Rep at this time for dispo for patient, pt continues to hold in the ED. 04:00 Reassessment: Patient appears in no apparent distress at this time. Vital signs rr5 hemodynamically stable. 05:29 Reassessment: spoke to Melqui[facility], [facility] staff and said the DON is waiting for the clinicals mg2 to be faxed to her. 05:49 Reassessment: Patient appears in no apparent distress at this time. reassess by ED rr5 provider with order made and carried out. 05:58 Reassessment: i called the [facility] staff (Melquiades) and said she will call back. she will call [facility] first the DON of she already received the clinicals. Hospitalist ( Dr. Decker) came and assessed the patient saying that patient can be discharged to [facility] . 06:38 Reassessment: i called [place], [facility] staff regarding the patient's case that patient is for mg2 dc and she said she will not accept the patient til the DON Phuong checked the clinicals. 06:45 Reassessment: Industrial Spraypainter Yoselin RN notified of [facility] Lena RN refusal to take sg report at this time. pt to be discharged to [facility] via EMS with appropriate equipment. 06:58 Reassessment: Contacted Phuong at [facility]. Stated, "my DON has mw not reviewed the clinical data and has told me to refuse patient." Phuong stated, "I was told not to give you my DON's, phone nurmber." DON is Minerva Deys. . 07:00 Reassessment: RECD REPORT FROM JOEL HATCH. 84YO WF P/W AMS FROM [facility]. PT bp BASELINE AMS, PICC IN PLACE FOR IVF AND ABX. [facility] STATES RESIDENT WILL NOT BE ABLE TO RETURN UNTIL [facility] REVIEWS CLINICALS. 07:05 General: Appears in no apparent distress. Respiratory: Airway is patent Respiratory rb1 effort is even, unlabored, Respiratory pattern is regular, symmetrical. Derm: Skin is pink, warm \\T\\ dry. 07:05 General: Pt. is resting with eyes closed, respirations even, unlabored.. rb1 07:58 Reassessment: REPORT TO [facility], TRANSPORT EN ROUTE. bp 08:17 Reassessment: Patient appears in no apparent distress at this time. No changes from rb1 previously documented assessment. 09:19 Reassessment: PT SLEEPING. TRANSPORT PENDING. bp 10:19 Reassessment: PER [facility], TRANSPORT CANCELLED IN FAVOR OF TRANSFERRING PT TO [facility] bp FACILITY FROM [facility] ED. 11:51 Reassessment: PT [facility] WITH TRANSPORT. bp Vital Signs: 03/19 21:02 BP 103 / 75; Pulse 70; Resp 18; Temp 99(O); Pulse Ox 88% on R/A; mg2 22:12 BP 122 / 66; Pulse 68; Resp 19; Pulse Ox 96% on 3 lpm NC; rr5 23:20 BP 90 / 62; Pulse 62; Resp 15; Pulse Ox 95% on 3 lpm NC; rr5 09/01 00:30 BP 93 / 47; Pulse 66; Resp 17; Pulse Ox 95% on 3 lpm NC; rr5 01:06 BP 102 / 61; Pulse 61; Resp 18; Pulse Ox 95% on 3 lpm NC; mg2 02:06 BP 90 / 55; Pulse 63; Resp 18; Pulse Ox 99% on 3 lpm NC; mg2 03:06 BP 96 / 65; Pulse 60; Resp 17; Pulse Ox 96% on 3 lpm NC; rr5 04:29 BP 92 / 57; Pulse 60; Resp 18; Pulse Ox 95% on 3 lpm NC; mg2 05:18 BP 92 / 52; Pulse 65; Resp 18; Pulse Ox 82% on R/A; mg2 05:19 Pulse Ox 99% on 3 lpm NC; mg2 06:03 BP 103 / 61; Pulse 66; Resp 18; Pulse Ox 100% on Nebulizer Mask; mg2 07:00 BP 90 / 58; Pulse 60; Resp 24; Pulse Ox 92% ; rb1 08:00 BP 94 / 58; Pulse 75; Resp 24; Pulse Ox 94% on 3 lpm NC; rb1 09:00 BP 98 / 53; Pulse 72; Resp 24; Pulse Ox 96% on 3 lpm NC; bp 10:00 BP 100 / 54; Pulse 60; Resp 20; Pulse Ox 88% on R/A; bp 11:00 BP 100 / 51; Pulse 68; Resp 22; Temp 98.7; Pulse Ox 94% ; bp 04:29 patient sleeping mg2 05:18 patient sleeping mg2 ED Course: 03/19 20:46 Patient arrived in ED. sg 20:47 Mark Rodriguez MD is Attending Physician. pkl 20:48 Arm band placed on. sg 20:57 Octavio Hercules RN is Primary Nurse. mg2 20:58 No provider procedures requiring assistance completed. mg2 20:59 Triage completed. sg 21:03 Patient has correct armband on for positive identification. Door closed. mg2 21:20 Inserted saline lock: 20 gauge in left hand, using aseptic technique. Blood collected. rr5 21:20 First set of blood cultures drawn by id. rr5 21:24 Accessed PICC line. using ,sterile technique, per hospital protocol. Clean \\T\\ dry. mg2 Dressing intact. Good blood return. Flushes easily. 21:34 Second set of blood cultures drawn by me. rr5 21:49 CT Chest Wo Con In Process Unspecified. EDMS 03/20 07:09 Report given to DALY RN and Chandana RN. mg2 07:26 Primary Nurse role handed off by Octavio Hercules RN bp 07:26 Chandana Gonzalez, MAMIE is Primary Nurse. bp 07:58 IV discontinued, intact, bleeding controlled, No redness/swelling at site. Pressure bp dressing applied. Administered Medications: 03/19 21:24 Drug: NS 0.9% 1000 ml Route: IV; Rate: 100 ml/hr; Site: PICC; mg2 03/20 08:00 Follow up: IV Status: Completed infusion; IV Intake: 1000ml bp 03/19 22:09 Drug: Zofran (Ondansetron) 4 mg Route: IVP; Site: PICC; rr5 23:10 Follow up: Response: No adverse reaction rr5 22:11 Drug: morphine 2 mg {Note: rass 0.} Route: IVP; Site: PICC; rr5 23:11 Follow up: Response: No adverse reaction; RASS: Alert and Calm (0) rr5 03/20 00:16 Drug: Potassium Chloride 20 mEq Route: IV; Rate: calculated rate; Site: PICC; mg2 03:20 Follow up: Response: No adverse reaction; IV Status: Completed infusion; IV Intake: rr5 100ml 01:29 Drug: Meropenem 1 grams Route: IV; Rate: calculated rate; Site: PICC; mg2 03:20 Follow up: Response: No adverse reaction; IV Status: Completed infusion; IV Intake: rr5 100ml 05:50 Drug: Albuterol - atroVENT (3:1) (2.5 mg - 0.5 mg) 3 ml Route: Nebulizer; rr5 08:00 Follow up: Response: No adverse reaction; Marked relief of symptoms bp Intake: 03:20 IV: 100ml; Total: 100ml. rr5 03:20 IV: 100ml; Total: 200ml. rr5 08:00 IV: 1000ml; Total: 1200ml. bp Outcome: 06:05 Discharge ordered by MD. pkl 07:58 Discharged to halfway. Report called to [facility] Transfer form completed. bp 07:58 Condition: stable 07:58 Discharge instructions given to halfway, Instructed on discharge instructions, follow up and referral plans. medication usage, Demonstrated understanding of instructions, follow-up care, medications. 11:52 Patient left the ED. bp Signatures: Dispatcher [employer] EDMS Yoselin Rm RN RN mw Gay, Steven, RN RN Mark De Jesus MD MD pkl Barber, Rebecca, RN RN [facility] Chandana Gonzalez RN RN bp Octavio Hercules RN RN [facility] Stepan Clifford RN RN rr5 Corrections: (The following items were deleted from the chart) 03/19 21:33 20:55 Care prior to arrival: None. [facility] 03/20 00:30 03/19 22:12 BP 122 / 66; Pulse 68bpm; Resp 19bpm; Pulse Ox 99%; rr5 rr5 03/20 10:20 09:00 BP 98 / 53; Pulse 72bpm; Resp 24bpm; Pulse Ox 96%; bp bp
--- NOTE | 2020-03-20 06:06 | EDPHYS ---
Physician Documentation [facility] Name: Kayla Marie Age: 84 yrs Sex: Female : 1935 Arrival Date: 03/19/2020 Time: 20:46 Bed 6 Private MD: ED Physician Mark Rodriguez HPI: 03/19 21:08 This 84 yrs old Female presents to ER via EMS with complaints of Altered pkl Mental Status. 21:08 The patient presents with agitation, confusion. Onset: The symptoms/episode pkl began/occurred just prior to arrival. Patient was discharged earlier today. Patient was admitted to this hospital 4 days ago with UTI and pneumonia.. Patient was suppose to receive IV antibiotics at the long term for 2 weeks. Patient became more confused and agitated in the long term . Historical: - Allergies: 21:02 Sulfa (Sulfonamide Antibiotics); mg2 21:02 eggplant; mg2 21:02 Lorazepam; mg2 21:02 vinegar; mg2 - Home Meds: 21:02 aspirin 81 mg Oral chew 1 tab once daily [Active]; mg2 23:32 acetaminophen 325 mg Oral tab 2 tabs every 6 hours [Active]; apixaban 5 mg Oral 1 tab Q mg2 EVENING [Active]; aspirin 81 mg Oral TbEC 1 tab once daily [Active]; Bentyl 20 mg Oral tab 1 tab 3 times per day [Active]; cetirizine 10 mg Oral tab 1 tab once daily [Active]; Depakote Sprinkles 125 mg Oral cpSP 2 caps 2 times per day [Active]; hydrocodone-acetaminophen 10-325 mg Oral tab 1 tab three times a day [Active]; furosemide 40 mg Oral tab [Active]; insulin detemir 18 units subcutaneous twice a day [Active]; Keppra 500 mg Oral tab 1 tab 2 times per day [Active]; Lantus 100 unit/mL Sub-Q soln [Active]; magnesium oxide 400 mg Oral tab daily [Active]; melatonin 3 mg Oral tab [Active]; metformin 500 mg Oral tab 2 times per day [Active]; Omeprazole Oral [Active]; polyethylene glycol 8000(bulk) miscellaneous powd daily [Active]; quetiapine 25 mg Oral tab 1 tab [Active]; sotalol 160 mg Oral tab 1 tab 2 times per day [Active]; spironolactone 25 mg Oral tab 1 tab 2 times per day [Active]; - PMHx: 21:02 uti; shingles; copd; SLE; Diabetes - IDDM; heart failure; Anxiety; mg2 23:32 Seizures; macular degeneration; Nerve stimulator; Osteoporosis; right hip fx; Dementia; mg2 CHF; CAD; Atrial Fib; Aortic Stenosis; Hypertension; Lupus; legally blind; - Immunization history:: Flu vaccine status is unknown. - Social history:: Smoking status: unknown. ROS: 21:08 Eyes: Negative for injury, pain, redness, and discharge, ENT: Negative for injury, pkl pain, and discharge, Neck: Negative for injury, pain, and swelling, Cardiovascular: Negative for chest pain, palpitations, and edema, Respiratory: Negative for shortness of breath, cough, wheezing, and pleuritic chest pain, Abdomen/GI: Negative for abdominal pain, nausea, vomiting, diarrhea, and constipation, Back: Negative for injury and pain, : Negative for injury, bleeding, discharge, and swelling, MS/Extremity: Negative for injury and deformity. 21:08 Skin: Positive for rash, of the right mid back. 21:08 Neuro: Positive for altered mental status. Exam: 21:08 Head/Face: Normocephalic, atraumatic. Eyes: Pupils equal round and reactive to light, pkl extra-ocular motions intact. Lids and lashes normal. Conjunctiva and sclera are non-icteric and not injected. Cornea within normal limits. Periorbital areas with no swelling, redness, or edema. ENT: Nares patent. No nasal discharge, no septal abnormalities noted. Tympanic membranes are normal and external auditory canals are clear. Oropharynx with no redness, swelling, or masses, exudates, or evidence of obstruction, uvula midline. Mucous membranes moist. Neck: Trachea midline, no thyromegaly or masses palpated, and no cervical lymphadenopathy. Supple, full range of motion without nuchal rigidity, or vertebral point tenderness. No Meningismus. Chest/axilla: Normal chest wall appearance and motion. Nontender with no deformity. No lesions are appreciated. Cardiovascular: Regular rate and rhythm with a normal S1 and S2. No gallops, murmurs, or rubs. Normal PMI, no JVD. No pulse deficits. Respiratory: Lungs have equal breath sounds bilaterally, clear to auscultation and percussion. No rales, rhonchi or wheezes noted. No increased work of breathing, no retractions or nasal flaring. Abdomen/GI: Soft, non-tender, with normal bowel sounds. No distension or tympany. No guarding or rebound. No evidence of tenderness throughout. Back: No spinal tenderness. No costovertebral tenderness. Full range of motion. 21:08 Skin: Residual herpes zoster rash right mid back. 21:08 Neuro: Orientation: Not oriented to place, time, situation, Cranial nerves: grossly normal, Motor: moves all fours. Vital Signs: 21:02 BP 103 / 75; Pulse 70; Resp 18; Temp 99(O); Pulse Ox 88% on R/A; mg2 22:12 BP 122 / 66; Pulse 68; Resp 19; Pulse Ox 96% on 3 lpm NC; rr5 23:20 BP 90 / 62; Pulse 62; Resp 15; Pulse Ox 95% on 3 lpm NC; rr5 /01 00:30 BP 93 / 47; Pulse 66; Resp 17; Pulse Ox 95% on 3 lpm NC; rr5 01:06 BP 102 / 61; Pulse 61; Resp 18; Pulse Ox 95% on 3 lpm NC; mg2 02:06 BP 90 / 55; Pulse 63; Resp 18; Pulse Ox 99% on 3 lpm NC; mg2 03:06 BP 96 / 65; Pulse 60; Resp 17; Pulse Ox 96% on 3 lpm NC; rr5 04:29 BP 92 / 57; Pulse 60; Resp 18; Pulse Ox 95% on 3 lpm NC; mg2 05:18 BP 92 / 52; Pulse 65; Resp 18; Pulse Ox 82% on R/A; mg2 05:19 Pulse Ox 99% on 3 lpm NC; mg2 06:03 BP 103 / 61; Pulse 66; Resp 18; Pulse Ox 100% on Nebulizer Mask; mg2 07:00 BP 90 / 58; Pulse 60; Resp 24; Pulse Ox 92% ; rb1 08:00 BP 94 / 58; Pulse 75; Resp 24; Pulse Ox 94% on 3 lpm NC; rb1 09:00 BP 98 / 53; Pulse 72; Resp 24; Pulse Ox 96% on 3 lpm NC; bp 10:00 BP 100 / 54; Pulse 60; Resp 20; Pulse Ox 88% on R/A; bp 11:00 BP 100 / 51; Pulse 68; Resp 22; Temp 98.7; Pulse Ox 94% ; bp 04:29 patient sleeping mg2 05:18 patient sleeping mg2 MDM: 03/19 20:47 Patient medically screened. pkl 03/20 00:53 Data reviewed: vital signs, nurses notes, lab test result(s), EKG, radiologic studies, pkl CT scan. ED course: Discussed patient with Saulo Putnam. Patient not in any distress. Vital signs stable. Talked to [facility] staff. Awaiting [facility] to accept patient. 05:20 ED course: Talked to Saulo Putnam. O2 sat dropped to 82% at RA. pkl 05:22 ED course: Discharge instruction yesterday to long term, patient to have 2 L O2 per pkl NC. 05:35 ED course: Patient O2 sat. is 96 % at 2 L O2 per NC. Patient asleep and not in any pkl distress. 05:57 ED course: Patient evaluated by Dr. Decker in ER. Patient is stable and may be pkl discharged back to the long term with instructions from yesterday from the hospital. 03/19 21:02 Order name: CBC with Diff; Complete Time: 22:03 pkl 03/19 21:02 Order name: Chem 7; Complete Time: 22:03 pkl 03/19 21:02 Order name: Blood Culture Adult (2) pkl 03/19 21:02 Order name: Lactate; Complete Time: 22:03 pkl 03/19 21:02 Order name: Procalcitonin; Complete Time: 22:06 pkl 03/19 21:02 Order name: Urine Microscopic Only; Complete Time: 22:03 pkl 03/19 21:05 Order name: ABG; Complete Time: 22:03 pkl 03/19 21:05 Order name: CT Chest Wo Con pkl 03/19 21:15 Order name: Urine Dipstick--Ancillary (enter results); Complete Time: 22:03 tt3 03/20 03:55 Order name: SARS-COV-2 RT PCR; Complete Time: 03:55 EDMS 03/20 07:32 Order name: Diet Ada 1800 Obdulio; Complete Time: 07:33 bd Administered Medications: 03/19 21:24 Drug: NS 0.9% 1000 ml Route: IV; Rate: 100 ml/hr; Site: PICC; mg2 03/20 08:00 Follow up: IV Status: Completed infusion; IV Intake: 1000ml bp 03/19 22:09 Drug: Zofran (Ondansetron) 4 mg Route: IVP; Site: PICC; rr5 23:10 Follow up: Response: No adverse reaction rr5 22:11 Drug: morphine 2 mg {Note: rass 0.} Route: IVP; Site: PICC; rr5 23:11 Follow up: Response: No adverse reaction; RASS: Alert and Calm (0) rr5 03/20 00:16 Drug: Potassium Chloride 20 mEq Route: IV; Rate: calculated rate; Site: PICC; mg2 03:20 Follow up: Response: No adverse reaction; IV Status: Completed infusion; IV Intake: rr5 100ml 01:29 Drug: Meropenem 1 grams Route: IV; Rate: calculated rate; Site: PICC; mg2 03:20 Follow up: Response: No adverse reaction; IV Status: Completed infusion; IV Intake: rr5 100ml 05:50 Drug: Albuterol - atroVENT (3:1) (2.5 mg - 0.5 mg) 3 ml Route: Nebulizer; rr5 08:00 Follow up: Response: No adverse reaction; Marked relief of symptoms bp Disposition: 03/20/20 06:05 Discharged to Home. Impression: Altered mental status ( Improved ) Pneumonia. - Condition is Stable. - Medication Reconciliation Form, Thank You Letter, Antibiotic Education, Prescription Opioid Use form. - Follow up: Private Physician; When: 2 - 3 days; Reason: Re-evaluation by your physician. - Problem is new. - Symptoms have improved. Signatures: Dispatcher [employer] [facility] Mark Rodriguez MD MD pkl Attema, Lee, TITLE I INSTRUCTIONAL ASSISTANT-C TITLE I INSTRUCTIONAL ASSISTANT-Cla1 Chandana Gonzalez, RN RN bp Octavio Hercules, RN RN mg2 Stepan Clifford, RN RN rr5 Corrections: (The following items were deleted from the chart) 02:37 03/19 21:05 CORONAVIRUS+ ordered. [facility] 03/20 11:52 06:05 03/20/2020 06:05 Discharged to Home. Impression: Altered mental status ( Improved bp ) Pneumonia. Condition is Stable. Forms are Medication Reconciliation Form, Thank You Letter, Antibiotic Education, Prescription Opioid Use. Follow up: Private Physician; When: 2 - 3 days; Reason: Re-evaluation by your physician. Problem is new. Symptoms have improved. pkl
--- NOTE | 2020-03-20 07:43 | P.CNS ---
Date of Consult: 03/20/20 Reason for Consult: ER evaluation Requesting Physician: Mark Rodriguez Primary Care Provider: [place] resident Chief Complaint: Agitation History of Present Illness: 84-year-old female with multiple medical problems including atrial fibrillation on chronic anti coalition therapy, chronic diastolic CHF, CAD, diabetes mellitus type 2, hyperlipidemia, seizure disorder, chronic pain, and vascular dementia. Patient was recently hospitalized from 03/15/2020 through 03/19/2020. During the course of her stay patient was found to have toxic encephalopathy with sepsis related to UTI-bacteremia. Blood cultures and urine culture positive for E coli-ESBL. PICC line was placed. Patient improved with IV meropenem. Social work help arrange for continued IV antibiotic therapy for total 2 weeks at the [facility] were she comes from. Patient was discharged yesterday to the half-way. Apparently when she went to the half-way. The patient had some agitation and confusion. The patient was sent back to the ER for further evaluation. In the ER patient was evaluated. CT scan showed no significant change from prior. Patient required oxygen which had been arranged prior to discharge for her CHF. Patient medically stable at this time. CBC, BMP reviewed. Unremarkable at this time. The patient had very little agitation at the ER. Vital signs were stable. The ER tried to send the patient back to the half-way. half-way refused to take the patient back. At this time patient does not meet criteria for admission. Patient with underlying dementia. Allergies Sulfa (Sulfonamide Antibiotics) Allergy (Unknown, Verified 06/07/17 05:24) UNKNOWN lorazepam Adverse Reaction (Verified 06/07/17 15:22) UNknown eggplant Allergy (Uncoded 01/30/18 21:36) Unknown vinagar Allergy (Uncoded 01/30/18 21:36) Unknown vinegar Adverse Reaction (Unknown, Uncoded 06/07/17 05:24) Rash Home medications list reviewed: Yes Home Medications: Acetaminophen [Tylenol*] 650 mg PO Q6HP PRN 03/16/20 Apixaban [Eliquis *] 5 mg PO BEDTIME 03/16/20 Aspirin Chewable [Aspirin Chewable*] 81 mg PO DAILY 03/16/20 Cetirizine HCl [Zyrtec] 10 mg PO DAILY 03/16/20 Divalproex [Depakote Sprinkle] 250 mg PO BID 03/16/20 Furosemide [Lasix*] 40 mg PO BID 03/16/20 Hydrocodone Bit/Acetaminophen [Hydrocodon-Acetaminophn 10-325] 1 tab PO TIDP PRN 03/16/20 Insulin Glargine Human [Lantus*] 40 units SQ DAILY 03/16/20 Magnesium Oxide [Mag 0X*] 400 mg PO BID 03/16/20 Melatonin [Melatonin*] 6 mg PO BEDTIME 03/16/20 Metformin HCl [Glucophage*] 500 mg PO BIDWM 03/16/20 Omeprazole 20 mg PO DAILY 03/16/20 Polyethylene Glycol 3350 [Miralax] 17 gm PO DAILY PRN 03/16/20 Quetiapine [Seroquel*] 25 mg PO BEDTIME 03/16/20 Sotalol HCl [Betapace*] 160 mg PO BID 03/16/20 Spironolactone [Aldactone*] 25 mg PO BID 03/16/20 levETIRAcetam [Keppra*] 500 mg PO BID 03/16/20 - Past Medical/Surgical History Diabetic: Yes -: Chronic atrial fibrillation -: Chronic anti coagulation therapy -: Diabetes mellitus type 2 -: Chronic diastolic CHF -: Hypertension -: Vascular dementia -: Nerve stimulator -: COPD -: Seizure disorder -: Appy -: Ovarian cysts -: hernia repair -: hysterectomy -: nose sx -: cholesysectomy -: lysis of adhesions to bowel -: R hip fracture Psychosocial/ Personal History: From [facility] - Family History Mother Medical History: Heart disease, Diabetes Notes: CHF Father Medical History: Heart disease Notes: CHF Brother Medical History: Heart disease, Cancer Notes: CHF. Prostated cancer - Social History Smoking Status: Unknown if ever smoked Alcohol use: No CD- Drugs: No Caffeine use: No Place of Residence: Group Home Review of Systems General: As per HPI Eyes: Unremarkable ENT: Unremarkable Respiratory: Unremarkable Cardiovascular: Unremarkable Gastrointestinal: Unremarkable Genitourinary: Unremarkable Musculoskeletal: Unremarkable Integumentary: Unremarkable Neurological: Unremarkable Lymphatics: Unremarkable Physical Examination General: Alert, In no apparent distress, Cooperative, Demented (Mild to moderate dementia) HEENT: Atraumatic Neck: Supple Respiratory: Crackles/rales (Minimal crackles to the bases), Other (No acute respiratory distress noted. Patient on nasal cannula.) Cardiovascular: Regular rate/rhythm Gastrointestinal: Normal bowel sounds, Soft and benign, Non-distended Musculoskeletal: No erythema, No tenderness, No warmth Integumentary: No tenderness/swelling, No erythema, No warmth, No cyanosis Neurological: Normal speech, Normal strength at 5/5 x4 extr, Normal tone, Dementia Laboratory Data (last 24 hrs) 03/19/20 21:20: Sodium 139, Potassium 3.3 L, BUN 9, Creatinine 0.66, Glucose 145 H 03/19/20 21:20: WBC 8.6 D, Hgb 10.9 L, Hct 33.2 L, Plt Count 229 D Conclusions/Impression: Medical problem list: Altered mental status secondary to toxic encephalopathy with sepsis related to UTI/bacteremia, urine/blood culture positive for E coli-ESBL, patient now back to baseline Vascular dementia, moderate Chronic Atrial fibrillation on chronic anti coalition therapy Chronic diastolic CHF CAD Diabetes mellitus type 2 Hyperlipidemia Seizure disorder Chronic pain Plan: Patient medically stable as yesterday. No need for readmission at this time. Agitation related to underlying moderate dementia. Patient appears to be at her baseline level. Patient was not agitated in the ER. Patient did not require any significant medication. Vital signs stable. Patient currently on oxygen. Will recommend that the patient return back to the [facility]way. As mentioned previously patient recently hospitalized for toxic encephalopathy with severe sepsis related to UTI/bacteremia. Urine and blood cultures were positive for ESBL-E coli. Arrangements have been arranged to continue IV meropenem 1000 mg twice daily for total of 2 weeks. Recommend to recheck lab- blood and urine culture in 2 weeks. If unremarkable PICC line and antibiotics can be discontinued. Patient with underlying vascular dementia. This is moderate. No significant agitation noted at this time. Patient may continue with her current medications. Patient takes Seroquel 25 mg at bedtime. Recommend follow up as an outpatient with neurology to further monitor and address. Patient with chronic atrial fibrillation on chronic anti coalition therapy. This remained stable. Patient may continue with sotalol 160 mg 1 pill twice daily and Eliquis 5 mg at bedtime. Recommend follow up with cardiology as directed. May need to consider decreasing sotalol to 80 mg twice daily if heart rate remains less than 50. Patient with chronic diastolic CHF. Patient should continue with Lasix 40 mg 1 pill twice daily and Aldactone 25 mg 1 pill twice daily. Recommend to continue 1500 cc per day fluid restriction and low-salt diet. Patient will continue with oxygen to maintain sats above 93%. Recommend to recheck lab-BMP in 1-2 weeks to monitor progress. Patient with CAD. This has remained stable. At discharge she will continue with aspirin 81 mg daily and magnesium 500 mg 1 pill twice daily. Patient with diabetes mellitus type 2. Patient previously on Lantus 40 units subcu and metformin. Will recommend to discontinue Lantus due to poor intake related to her dementia. Patient may continue with Glucophage 500 mg 1 pill twice daily. Recommend to monitor blood sugars at least twice daily. Recommend to maintain blood sugar less than 140 fasting and less than 200 after meals. Further evaluation and adjustment in medication can be done by half-way physician. The patient requires basal insulin this will need to be monitored closely due to her dementia and poor appetite. Hypoglycemia we need to be monitored. Patient with seizure disorder. This has remained stable. At discharge patient will continue with Keppra 500 mg 1 pill twice daily and Depakote 2 and 50 mg 1 pill twice daily. Recommend follow up with neurology as directed Patient with chronic pain. Patient may continue with her current medication as directed. This was discussed in detail with ER physician. ER physician to call half-way to send the patient back to continue prior discharge plan of care. Time Spent Managing Pts care (In Minutes): 55
--- NOTE | 2020-03-20 19:25 | RAD REPORT ---
EXAM DESCRIPTION: CT - Thorax Wo Con - 03/20/2020 6:44 am CLINICAL HISTORY: Pneumonia COMPARISON: None Available. TECHNIQUE: Axial CT images of the chest without IV contrast obtained from the thoracic inlet through the diaphragm. Coronal and sagittal reformatted images available. Respiratory motion artifact. FINDINGS: Chest: Thyroid: No abnormalities of the visualized thyroid. Great Vessels: Great vessels have normal anatomic configuration. Thoracic Aorta: Atherosclerotic calcification of the thoracic aorta. Pulmonary arteries: Mild enlargement main pulmonary artery could be seen with pulmonary arterial hype rtension. Heart: Coronary artery atherosclerosis. No cardiomegaly or significant pericardial effusion. Lymph Nodes: No enlarged mediastinal lymph nodes identified. Esophagus: No abnormalities of the esophagus identified Other: Right arm PICC with tip in the SVC. Lungs: Multifocal bilateral groundglass opacities with interlobular septal thickening. Pleura: No pneumothorax. Small bilateral pleural effusions, slightly greater on the right than the le ft. Trachea/Airways: No acute abnormality of the trachea. Senile calcifications of the airways. Bones: Multilevel degenerative change of the thoracic spine. Defect seen in the sternum on sagittal i maging is felt to be secondary to respiratory motion. Dorsal generator leads. Upper Abdomen: Limited images of the upper abdomen demonstrate no definite abnormalities of visualize d portions of the liver, pancreas, spleen, adrenal glands, or kidneys. Prior cholecystectomy. IMPRESSION: 1. Small bilateral pleural effusions. 2. Bilateral groundglass opacities with interlobular septal thickening. Imaging features can be seen with viral pneumonia, though are nonspecific and can occur with a variety of infectious and noninfect ious processes including pulmonary edema. PneInd Reference: https://pubs.rsna.org/doi/full/10.1148/ryct.0356682089 3. Coronary artery atherosclerosis. This exam was performed according to our departmental dose-optimization program, which includes autom ated exposure control, adjustment of the mA and/or kV according to patient size and/or use of iterati ve reconstruction technique. Electronically signed by: Davion Avendaño 03/19/2020 10:18 PM CDT Due to temporary technical issues with the PACS/Fluency reporting system, reports are being signed by the in house radiologist without review as a courtesy to ensure prompt reporting. The interpreting r adiologist is fully responsible for the content of the report.
[2020-03-22 18:44] VITALS: BP 100/51; TEMP 98.7; O2SAT 94
== END 2020-03-20 11:52 | disposition home or self-care (01) ==
LOC: ER 21:01
DX: R41.82 Altered mental status, unspecified (principal); J18.9 Pneumonia, unspecified organism; Z88.2 Allergy status to sulfonamides; Z91.018 Allergy to other foods; E11.9 Type 2 diabetes mellitus without complications; F41.9 Anxiety disorder, unspecified; I10 Essential (primary) hypertension; I50.9 Heart failure, unspecified; H54.8 Legal blindness, as defined in USA
CPT/HCPCS: 87040 ×2; 85025; 80048; 36415; 83605; 84145; 71250; 82805; U0003; J3480; J7030; J2405; 81003; 81015; 96361; 96365; 96366; 96375; 99285